=== PATIENT | male | born 1975 | race Caucasian/White ===

== ENCOUNTER 2021-12-18 18:31 | Inpatient (IN) | payer BC, SELFPAY ==
--- NOTE | 2021-12-18 18:32 | XRR_ITS ---
PROCEDURE INFORMATION: Exam: XR Right Foot Exam date and time: 12/18/2021 7:40 PM Age: 46 years old Clinical indication: Pain; Foot; Right; Additional info: Ulcer TECHNIQUE: Imaging protocol: Radiologic exam of the Right foot. Views: 3 or more views. COMPARISON: No relevant prior studies available. FINDINGS: Bones/joints: Hallux valgus on this nonweightbearing exam. Tiny plantar calcaneal spur. Mild dorsal midfoot spurring is present. No acute fracture dislocation. No obvious radiographic evidence of acute osteomyelitis however if there is strong clinical concern, follow-up exam or MRI correlation may be considered. Soft tissues: Irregular foci of air densities throughout the 2nd through 5th toes may be related to soft tissue ulceration or small amount of soft tissue gas. Other findings: Three nonweightbearing views submitted. XR/XR foot RT min 3V* [id number] IMPRESSION: No acute osseous findings. Soft tissue findings as above.
[2021-12-18 19:03] VITALS: BP 161/77; PULSE 109; RESP 18; TEMP 37.3; O2SAT 96; BMI 38.6
[2021-12-18 19:22] LABS: Basophils # 0.1 10^3/uL (0.0-0.1); Basophils % 0.7 %; Eosinophils # 0.1 10^3/uL (0.0-0.8); Eosinophils % 0.7 %; Hematocrit 44.1 % (42.0-52.0); Hemoglobin 15.4 g/dL (11.7-16.6); Lymphocytes # 1.7 10^3/uL (0.8-4.8); Lymphocytes % 8.9 %; Mean Corpuscular HGB Conc 34.9 g/dL (30.0-36.0); Mean Corpuscular Hemoglobin 29.4 pg (28.0-34.0); Mean Corpuscular Volume 84.3 fl (80-94); Monocytes # 1.8 10^3/uL (0.2-0.9); Monocytes % 9.1 %; Neutrophils # 15.47 10^3/uL (1.8-7.7); Neutrophils % 79.9 %; Nucleated Red Blood Cells % 0 %; Platelet Count 218 10^3/cmm (130-400); Red Blood Count 5.23 10^6/uL (4.1-5.3); White Blood Count 19.4 10^3/uL (4.0-10.0)
[2021-12-18 19:37] LABS: Alanine Aminotransferase 23 U/L (0-41); Albumin Level 3.1 g/dL (3.5-5.2); Alkaline Phosphatase 94 U/L (40-130); Anion Gap 15.1 (5-19); Aspartate Amino Transferase 12 U/L (0-40); Blood Urea Nitrogen 16 mg/dL (6-20); Calcium 9.3 mg/dL (8.5-10.5); Carbon Dioxide 21 mmol/L (22-29); Chloride 97 mmol/L (98-107); Globulin 4.2 g/dL (1.3-4.6); Glomerular Filtration Rate 90.4 mL/min (90-130); Glucose 206 mg/dL (65-115); Osmolality Calculated 275 mOsm/kg (285-295); Potassium 4.1 mmol/L (3.5-5.1); Sodium 129 mmol/L (136-145); Total Bilirubin 0.8 mg/dL (0.15-1.2); Total Protein 7.3 g/dL (6.6-8.7)
[2021-12-18] MEDS: piperacillin-tazobactam 3.375 GM in sodium chloride 0.9% (plus) 50 ML IV (20:19)
[2021-12-18] MEDS: vancomycin 1,000 MG in sodium chloride 0.9% 250 ML 250 MG IV (21:00)
[2021-12-18 21:19] VITALS: BMI 39.7
--- NOTE | 2021-12-18 22:30 | W.ED.WOUNDLC ---
HPI - Wound/Laceration General: Chief Complaint: Wound/Laceration Stated Complaint: right foot ulcer and fever Time Seen by Provider: 12/18/21 19:41 History of Present Illness: 46 yo male patient presents to ER with diabetic foot ulcer to left foot. Pt states this has been there for months and has progressively worsened over last month. Pt presents with swollen erythemic 2nd digit to left foot. Pt states he has been running a fever and not feeling well last 2 days. Associated symptoms: Denies chills, fever(s), nausea, syncope or vomiting Review of Systems Const: Denies: fever(s), chills, body aches, change in appetite, change in weight, fatigue, malaise or diaphoresis Eyes: Denies: change in vision, blurry vision, blind spots, photophobia, eye discomfort, eye discharge, eye redness, floaters or seeing flashes ENMT: Denies: throat pain, uvular edema, enlarged tonsils, odynophagia, hoarseness, mouth pain, swelling of lips/tongue, oral sores, bleeding gums, dental pain, dry mouth, ear or mastoid pain, ear discharge, change in hearing, tinnitus, disequilibrium, nasal discharge, nasal congestion, post nasal drip or sinus pain Card: Denies: chest pain, palpitations, irregular heart rhythm, edema, swelling of feet/ankles, lightheadedness, syncope, pre-syncope, dyspnea on exertion, orthopnea, leg pain with exertion or acrocyanosis Resp: Denies: dyspnea, productive cough, non-productive cough, wheezing, stridor, pain on inspiration, change in phlegm color, hemoptysis or chest congestion GI: Denies: abdominal pain, nausea, vomiting, hematemesis, dysphagia, diarrhea, constipation, GI cramping, change in bowel habits or rectal pain : Denies: flank pain, dysuria, urinary frequency, urinary urgency, urinary hesitancy or hematuria Musc: Denies: neck pain, back pain, joint pain, joint swelling or deformity Skin/Breast: Denies: rash, pruritus, erythema, sores, new lesions, changes in skin color or dry skin Neuro: Denies: headache(s), numbness in extremities, weakness in extremities, sensory changes, lack of coordination, difficulty walking, frequent falls, dizziness, vertigo, confusion, behavioral changes, Slurred speech present, difficulty communicating thoughts or seizure-like activity Psych: Denies: anxiety, depression, suicidal ideation or homicidal ideation Endo: Denies: polyuria, polydipsia, tired all the time, cold intolerance, excessive sweating, flushing, hot flashes or heat intolerance Lee/Lymph: Denies: easy bruising, easy bleeding, petechiae, purpura, enlarged lymph nodes or tender lymph nodes All/Imm: Denies: urticaria, throat swelling, tongue swelling, facial swelling, acute wheezing or itchy eyes PFSH ED PFSH: Social History Smoking and tobacco status: former smoker Physical Exam Const: COMMON NORMALS: no acute distress, patient oriented x3, healthy appearing, alert and well nourished GENERAL APPEARANCE: cooperative, comfortable, well kempt and well developed; not ill appearing ORIENTATION/CONSCIOUSNESS: Yes awake, Yes oriented to person, Yes oriented to place and Yes oriented to time HENMT: THROAT: no uvular edema Neck/C-Spine: COMMON NORMALS: full ROM, no lymphadenopathy, supple, no meningeal signs, no JVD and Thyroid normal GENERAL: Yes normal visual inspection and Yes trachea midline THYROID: Thyroid normal CERVICAL SPINE: Yes cervical ROM normal Lymph: LYMPHATIC: no lymphadenopathy noted and no lymphedema noted Chest: COMMONS NORMALS: normal inspection of the chest and normal palpation of entire chest wall Resp: COMMON NORMALS: normal respiratory effort, No retractions, No use of accessory muscles and clear to auscultation bilaterally EFFORT & INSPECTION: Yes able to speak in complete sentences and Yes symmetric chest movement AUSCULTATION: clear to auscultation bilaterally Cardio: COMMON NORMALS: no JVD, regular rate and regular rhythm RATE: regular rate RHYTHM: regular rhythm GI: COMMON NORMALS: Normal to inspection, nondistended, normoactive bowel sounds present, Soft to palpation, non-tender, No hepatosplenomegaly present, no masses and no bruits INSPECTION: Yes normal to inspection AUSCULTATION: Yes normoactive bowel sounds PALPATION: Yes Soft to palpation and Yes No hepatosplenomegaly present PERCUSSION: normal to percussion RECTAL EXAM: Yes deferred : COMMON NORMALS: Yes no CVA tenderness BLADDER/KIDNEY EXAM: Yes no CVA tenderness Back/Pelvis: COMMON NORMALS: no CVA tenderness, thoracic and lumbar spine normal to inspection, no thoracic nor lumbar tenderness, thoraco-lumbar ROM normal and straight leg raise negative bilaterally THORACIC SPINE/UPPER BACK: Yes normal to inspection LUMBAR SPINE/LOWER BACK: Yes normal to inspection Extremity: COMMON NORMALS: full ROM and capillary refill normal (Patient has 1.5 cm tunneling ulcer to left foot) Neuro: COMMON NORMALS: patient oriented x3, CN's II-XII intact bilaterally, moves all extremities, no focal motor deficits, no sensory deficits noted and gait normal SENSORIUM/ORIENTATION: Yes alert, Yes oriented to person, Yes oriented to place and Yes oriented to time MENINGEAL SIGNS: Yes no meningeal signs CRANIAL NERVES: Yes CN normal except as noted SPEECH: speech normal GAIT: Yes Normal gait present SENSORY EXAM: Yes extremities MOTOR EXAM: 5/5 motor strength present throughout Psych: COMMON NORMALS: mental status grossly normal, Normal thought process present, cooperative, normal affect, speech normal, activity/motor behavior normal, denies hallucinations, denies homicidal ideation and denies suicidal ideation APPEARANCE: Yes grossly normal and Yes well kempt ATTITUDE: Yes calm ACTIVITY/MOTOR BEHAVIOR: Yes appropriate eye contact SPEECH: Yes normal speech THOUGHT PROCESS: Normal thought process present THOUGHT CONTENT: Yes Normal thought content present ATTENTION/CONCENTRATION: Yes attention grossly intact MEMORY/COGNITION: Yes memory grossly intact INSIGHT: Good insight present (Psych) JUDGEMENT: Good judgement present (Psych) Skin: COMMON NORMALS: turgor normal, no jaundice, no petechiae and no mottling GENERAL SKIN EXAM: turgor normal Course Vital Signs: Vital signs: Vital Signs Temperature 99.1 F 12/18/21 19:03 Pulse Rate 109 H 12/18/21 19:03 Respiratory Rate 18 12/18/21 19:03 Blood Pressure 161/77 12/18/21 19:03 Pulse Oximetry 96 12/18/21 19:03 Oxygen Delivery Me thod 12/18/21 19:03 MDM - Wound/Laceration Medical Decision Making Patient is well appearing on toxic and in no acute distress. 46 yo male patient presents to ER with diabetic foot ulcer to left foot. Pt states this has been there for months and has progressively worsened over last month. Pt presents with swollen erythemic 2nd digit to left foot. Pt states he has been running a fever and not feeling well last 2 days. Based on patients worsening diabetic foot ulcer and systemic symptoms, wlevated WBC, I will plan on admitting arjun for IV antibiotics at this time.. Van and Zosyn infusing. Pt is NVI distally Lab Data : 12/18/21 19:00 12/18/21 19:00 Radiology Impressions Foot X-Ray 12/18/21 18:32 IMPRESSION: No acute osseous findings. Soft tissue findings as above. Laboratory Results WBC 19.4 10^3/uL (4.0-10.0) H 12/18/21 19:00 RBC 5.23 10^6/uL (4.1-5.3) 12/18/21 19:00 Hgb 15.4 g/dL (11.7-16.6) 12/18/21 19:00 Hct 44.1 % (42.0-52.0) 12/18/21 19:00 MCV 84.3 fl (80-94) 12/18/21 19:00 MCH 29.4 pg (28.0-34.0) 12/18/21 19:00 MCHC 34.9 g/dL (30.0-36.0) 12/18/21 19:00 RDW 12.0 % (12.1-15.1) L 12/18/21 19:00 Plt Count 218 10^3/cmm (130-400) 12/18/21 19:00 MPV 10.0 fL (7.4-10.4) 12/18/21 19:00 Neut % (Auto) 79.9 % 12/18/21 19:00 Lymph % (Auto) 8.9 % 12/18/21 19:00 [place] % (Auto) 9.1 % 12/18/21 19:00 Eos % (Auto) 0.7 % 12/18/21 19:00 Baso % (Auto) 0.7 % 12/18/21 19:00 Neut # (Auto) 15.47 10^3/uL (1.8-7.7) H 12/18/21 19:00 Lymph # (Auto) 1.7 10^3/uL (0.8-4.8) 12/18/21 19:00 [place] # (Auto) 1.8 10^3/uL (0.2-0.9) H 12/18/21 19:00 Eos # (Auto) 0.1 10^3/uL (0.0-0.8) 12/18/21 19:00 Baso # (Auto) 0.1 10^3/uL (0.0-0.1) 12/18/21 19:00 Nucleated RBC % (auto) 0 % 12/18/21 19:00 Nucleated RBCs # 0.0 /100WBC 12/18/21 19:00 Sodium 129 mmol/L (136-145) L 12/18/21 19:00 Potassium 4.1 mmol/L (3.5-5.1) 12/18/21 19:00 Chloride 97 mmol/L (98-107) L 12/18/21 19:00 Carbon Dioxide 21 mmol/L (22-29) L 12/18/21 19:00 Anion Gap 15.1 (5-19) 12/18/21 19:00 BUN 16 mg/dL (6-20) 12/18/21 19:00 Creatinine 0.9 mg/dL (0.7-1.2) 12/18/21 19:00 GFR Calculation 90.4 mL/min (90-130) 12/18/21 19:00 Glucose 206 mg/dL (65-115) H 12/18/21 19:00 Calculated Osmolality 275 mOsm/kg (285-295) L 12/18/21 19:00 Calcium 9.3 mg/dL (8.5-10.5) 12/18/21 19:00 Total Bilirubin 0.8 mg/dL (0.15-1.2) 12/18/21 19:00 AST 12 U/L (0-40) 12/18/21 19:00 ALT 23 U/L (0-41) 12/18/21 19:00 Alkaline Phosphatase 94 U/L (40-130) 12/18/21 19:00 Total Protein 7.3 g/dL (6.6-8.7) 12/18/21 19:00 Albumin 3.1 g/dL (3.5-5.2) L 12/18/21 19:00 Globulin 4.2 g/dL (1.3-4.6) 12/18/21 19:00 Discharge Plan Discharge Patient Disposition: Admitted As Inpatient Admit Provider: Paige Hannah Clinical Impression: Diabetic foot ulcer Condition: Stable Coding Level of Care Code ED [employer] for Guille Engel
--- NOTE | 2021-12-18 22:33 | CTR_ITS ---
PROCEDURE INFORMATION: Exam: CT Right Lower Extremity With Contrast, Foot Exam date and time: 12/18/2021 11:11 PM Age: 46 years old Clinical indication: Other: Gas seen on x-ray; Additional info: Right foot diabetic foot, x ray with gas bubbles, concern for gas gangrene, evaluate TECHNIQUE: Imaging protocol: CT of the Right lower extremity with intravenous contrast was performed. Exam focused on the foot. Radiation optimization: All CT scans at this facility use at least one of these dose optimization techniques: automated exposure control; mA and/or kV adjustment per patient size (includes targeted exams where dose is matched to clinical indication); or iterative reconstruction. Contrast material: OMNI 350; Contrast volume: 100 ml; Contrast route: INTRAVENOUS (IV); COMPARISON: CR (LOW EXM, ) 12/18/2021 7:40 PM RADIATION DOSE METRICS: Total DLP (mGy-cm): 196.73 FINDINGS: Bones/joints: Soft tissue ulceration over the plantar aspect of the 2nd metacarpophalangeal joint with subcutaneous emphysema seen extending about the 2nd, 3rd and 4th phalanges with nonlocalized fluid consistent with a soft tissue infection, negative for focal fluid collection to indicate an abscess or acute appearing bony abnormality. Soft tissues: See Bones/joints finding. CT/CT foot RT w con [id number] IMPRESSION: Soft tissue ulceration over the plantar aspect of the 2nd metacarpophalangeal joint with subcutaneous emphysema seen extending about the 2nd, 3rd and 4th phalanges with nonlocalized fluid consistent with a soft tissue infection, negative for focal fluid collection to indicate an abscess or acute appearing bony abnormality.
[2021-12-18] MEDS: sodium chloride 0.9% 1,000 ML 75 ML IV (22:56)
[2021-12-18] MEDS: enoxaparin 40 mg/0.4 mL Syringe SUBCUT (22:57)
--- NOTE | 2021-12-18 23:03 | PC.PHAR ---
Pharmacokinetic dosing service Date: 12/18/21 Time: 2299 Objective: Patient: Dru Hazel Floor: 256-2 Age: 46 yo Serum creatinine: 0.9 mg/dL Height: 71.0 Inches Weight (kg): 129.274 Diagnosis: Relevant medical/social history: Cultures and sensitivities: Other labs: Assessment: IBW (kg): 75.30 Dosing wt(kg): 129.274 Estimated Creatinine clearance (ml/min): 108.1 CRCL method: Cockcroft and Gault using ibw(default). Drug selected: Vancomycin Loading dose (mg): 0 Vd (liters): 116.3 (factor used: 0.9 L/kg) Cristobal (hr-1): 0.094 Half life (hrs): 7.37 Recommended dose: 2000 mg Interval: 8 hrs Infusion time (hrs): 1.5 Predicted peak (mcg/mL): 30.3 Predicted trough (mcg/mL): 16.45 Total body weight is being used for vancomycin dosing. Renal function is stable [ ] /unstable [ ] Recommendations: Give Vancomycin 2000 mg q 8 hrs with an expected Cpeak of 30.3 mcg/ml and an expected Ctrough of 16.45 mcg/ml Renal dosing of other antibiotics (review renal dosing of other medications and list guidelines here): Thank you for the consult, will continue to follow. Signature: Katina Caldwell [facility]
[2021-12-18] MEDS: iohexol 350 mg/mL 100 mL Btl IV (23:08)
[2021-12-18 23:16] LABS: Lactic Sepsis W/Reflex 1.7 mmol/L (0.5-2.2)
--- NOTE | 2021-12-18 23:27 | P.HP_ITS ---
Providers/Chief Complaint Admitting Physician: Paige Hannah MD Primary Care Provider: Farzaneh Hernandez MD Chief Complaint: right foot ulcer and fever History of Present Illness Dru Hazel is a 46 year old male with a past medical history of diabetes mellitus, neuropathy, presenting with ulcer over his right foot which is currently draining for the past 2 to 3 months. He has had fever, increased swelling, feeling acutely unwell which brought him into the emergency room. Diagnostics ER showed leukocytosis, tachycardia and fever. Review of Systems General: Reports: 10 or more systems reviewed and unremarkable except in HPI and below Const: Denies: fever(s), chills or body aches Eyes: Denies: change in vision, blurry vision or photophobia ENMT: Reports: hoarseness; Denies: throat pain, enlarged tonsils, odynophagia or nasal congestion Card: Denies: chest pain, palpitations, irregular heart rhythm, edema, swelling of feet/ankles, lightheadedness, pre-syncope, dyspnea on exertion or orthopnea Resp: Denies: dyspnea, productive cough, non-productive cough, wheezing, stridor, pain on inspiration, change in phlegm color, hemoptysis or chest congestion GI: Denies: abdominal pain, nausea, vomiting, hematemesis, coffee ground emesis, dysphagia, heartburn, diarrhea, constipation, GI cramping, change in sto ol character, hematochezia or melena : Denies: flank pain, dysuria, urinary frequency, urinary urgency, urinary hesitancy or hematuria Musc: Denies: neck pain, back pain, extremity pain, joint swelling, joint warmth or deformity Neuro: Denies: headache(s), numbness in extremities, weakness in extremities, sensory changes, difficulty walking, frequent falls, dizziness, vertigo, behavioral changes, Slurred speech present or seizure-like activity Psych: Denies: anxiety, depression, suicidal ideation or homicidal ideation Endo: Denies: polyuria, polydipsia, tired all the time, cold intolerance or hot flashes Lee/Lymph: Denies: easy bruising or easy bleeding Medications/Allergies Home Medications Medication Instructions Recorded Confirmed Last Taken Type amlodipine 10 mg tablet 10 mg PO DAILY 01/02/20 12/19/21 12/18/21 08:00 History glimepiride 2 mg tablet 4 mg PO DAILY 01/02/20 12/19/21 12/18/21 08:00 History lisinopril 20 mg tablet 20 mg PO DAILY 01/02/20 12/19/21 12/18/21 08:00 History metformin 500 mg tablet,extended 2,000 mg PO ONCE 01/02/20 12/19/21 12/18/21 08:00 History release 24 hr sitagliptin 100 mg tablet (Januvia) 100 mg PO DAILY 01/02/20 12/19/21 12/18/21 08:00 History semaglutide 0.25 mg or 0.5 mg (2 0.25 mg SUBCUT 12/19/21 12/12/21 08:00 History mg/1.5 mL) subcutaneous pen injector ([employer]) Allergies Allergy/AdvReac Type Severity Reaction Status Date / Time No Known Allergies Allergy Verified 01/02/20 08:42 PFSH Acute PFSH: Medical History (Updated 12/19/21 @ 02:59 by Paige Hannah MD) Diabetes Social History Smoking and tobacco status: former smoker Vitals/I&O/Wt Last Vital Signs Temp 99.1 F 12/18/21 19:03 Pulse 109 H 12/18/21 19:03 Resp 18 12/18/21 19:03 BP 161/77 12/18/21 19:03 Pulse Ox 96 12/18/21 19:03 O2 Del Method 12/18/21 19:03 12/18/21 12/18/21 12/19/21 14:59 22:59 06:59 Intake Total 300 / 300 Balance 300 / 300 Weight last 48 hrs Weight 129.274 kg Weight 129.274 kg Physical Exam Narrative: General: No acute distress, AO x3 HEENT: PERRLA, pupils bilaterally equal and reactive, pallors not present Chest: Normal vesicular breath sounds, no added sounds, equal good air entry bilaterally CVS: S1-S2 regular, no murmurs, no tachycardia, no gallops, no rubs Abdomen: Soft, nontender, no organomegaly, bowel sounds present Neuro: No focal deficits, no facial deformity, AO x3, power 5/5 in all limbs Data : 12/19/21 04:57 12/19/21 04:57 Other Labs: Radiology Impressions Foot X-Ray 12/18/21 18:32 IMPRESSION: No acute osseous findings. Soft tissue findings as above. Foot CT 12/18/21 22:33 IMPRESSION: Soft tissue ulceration over the plantar aspect of the 2nd metacarpophalangeal joint with subcutaneous emphysema seen extending about the 2nd, 3rd and 4th phalanges with nonlocalized fluid consistent with a soft tissue infection, negative for focal fluid collection to indicate an abscess or acute appearing bony abnormality. Laboratory Results WBC 19.4 10^3/uL (4.0-10.0) H 12/18/21 19:00 RBC 5.23 10^6/uL (4.1-5.3) 12/18/21 19:00 Hgb 15.4 g/dL (11.7-16.6) 12/18/21 19:00 Hct 44.1 % (42.0-52.0) 12/18/21 19:00 MCV 84.3 fl (80-94) 12/18/21 19:00 MCH 29.4 pg (28.0-34.0) 12/18/21 19:00 MCHC 34.9 g/dL (30.0-36.0) 12/18/21 19:00 RDW 12.0 % (12.1-15.1) L 12/18/21 19:00 Plt Count 218 10^3/cmm (130-400) 12/18/21 19:00 MPV 10.0 fL (7.4-10.4) 12/18/21 19:00 Neut % (Auto) 79.9 % 12/18/21 19:00 Lymph % (Auto) 8.9 % 12/18/21 19:00 Bryan % (Auto) 9.1 % 12/18/21 19:00 Eos % (Auto) 0.7 % 12/18/21 19:00 Baso % (Auto) 0.7 % 12/18/21 19:00 Neut # (Auto) 15.47 10^3/uL (1.8-7.7) H 12/18/21 19:00 Lymph # (Auto) 1.7 10^3/uL (0.8-4.8) 12/18/21 19:00 Bryan # (Auto) 1.8 10^3/uL (0.2-0.9) H 12/18/21 19:00 Eos # (Auto) 0.1 10^3/uL (0.0-0.8) 12/18/21 19:00 Baso # (Auto) 0.1 10^3/uL (0.0-0.1) 12/18/21 19:00 Nucleated RBC % (auto) 0 % 12/18/21 19: Nucleated RBCs # 0.0 /100WBC 12/18/21 19:00 Sodium 129 mmol/L (136-145) L 12/18/21 19:00 Potassium 4.1 mmol/L (3.5-5.1) 12/18/21 19:00 Chloride 97 mmol/L (98-107) L 12/18/21:00 Carbon Dioxide 21 mmol/L (22-29) L 12/18/21:00 Anion Gap 15.1 (5-19) 12/18/21 19:00 BUN 16 mg/dL (6-20) 12/18/21 19:00 Creatinine 0.9 mg/dL (0.7-1.2) 12/18/21 19:00 GFR Calculation 90.4 mL/min (90-130) 12/18/21 19:00 Glucose 206 mg/dL (65-115) H 12/18/21 19:00 Estimat Average Glucose 192 12/18/21:59 Hemoglobin A1c 8.3 % (4.0-6.0) H 12/18/21 19:59 Calculated Osmolality 275 mOsm/kg (285-295) L 12/18/21 19:00 Lactic Acid 1.7 mmol/L (0.5-2.2) 12/18/21:59 Calcium 9.3 mg/dL (8.5-10.5) 12/18/21 19:00 Total Bilirubin 0.8 mg/dL (0.15-1.2) 12/18/21 19:00 AST 12 U/L (0-40) 12/18/21 19:00 ALT 23 U/L (0-41) 12/18/21 19:00 Alkaline Phosphatase 94 U/L (40-130) 12/18/21 19: Total Protein 7.3 g/dL (6.6-8.7) 12/18/21 19:00 Albumin 3.1 g/dL (3.5-5.2) L 12/18/21 19:00 Globulin 4.2 g/dL (1.3-4.6) 12/18/21 19:00 Micro: Microbiology 12/18/21 20:02 Blood Culture - Preliminary Blood SPECIMEN COLLECTED 12/18/21 19:59 Blood Culture - Preliminary Blood SPECIMEN COLLECTED A&P Assessment and plan (1) Sepsis: As evidenced by fever, tachycardia,leukocytosis source of infection by way of diabetic foot. check lactate, blood culture He has received vancomycin thus far start Zosyn in addition to vancomycin HAs received sepsis bolus in the ER, continue IVF 75 cc/hr CT foot to assess for underlying abscesses and /or osteomyelitis Continue home doses of amlodipine, lisinopril Insulin sliding scale for DM (2) Diabetic foot ulcer: Attestations Medical Necessity Statement*: Anticipate >2midnight admission for management of sepsis from diabetic foot infection Coding Level of Care Code Acute [employer] for [facility] Diagnoses Sepsis A41.9 Diabetic foot ulcer E11.621; L97.509
[2021-12-18 23:52] LABS: Estmated Average Glucose 192; Hemoglobin A1C 8.3 % (4.0-6.0)
[2021-12-19] VITALS (12 sets, daily range): BP systolic 123–169; BP diastolic 65–92; PULSE 91–107; RESP 15–75; TEMP 36.4–38.1; O2SAT 92–96
[2021-12-19 05:10] LABS: Basophils # 0.1 10^3/uL (0.0-0.1); Basophils % 0.4 %; Eosinophils # 0.1 10^3/uL (0.0-0.8); Eosinophils % 0.8 %; Hematocrit 40.2 % (42.0-52.0); Hemoglobin 14.2 g/dL (11.7-16.6); Lymphocytes # 1.3 10^3/uL (0.8-4.8); Lymphocytes % 7.8 %; Mean Corpuscular HGB Conc 35.3 g/dL (30.0-36.0); Mean Corpuscular Hemoglobin 29.8 pg (28.0-34.0); Mean Corpuscular Volume 84.3 fl (80-94); Mean Platelet Volume 9.5 fL (7.4-10.4); Monocytes # 1.6 10^3/uL (0.2-0.9); Monocytes % 9.8 %; Neutrophils # 13.48 10^3/uL (1.8-7.7); Neutrophils % 80.6 %; Nucleated Red Blood Cells % 0 %; Platelet Count 179 10^3/cmm (130-400); Red Blood Count 4.77 10^6/uL (4.1-5.3); Red Cell Distribution Width 12.2 % (12.1-15.1); White Blood Count 16.7 10^3/uL (4.0-10.0)
[2021-12-19 05:34] LABS: Alanine Aminotransferase 20 U/L (0-41); Albumin Level 2.7 g/dL (3.5-5.2); Alkaline Phosphatase 83 U/L (40-130); Anion Gap 15.2 (5-19); Aspartate Amino Transferase 11 U/L (0-40); Blood Urea Nitrogen 14 mg/dL (6-20); Calcium 9.2 mg/dL (8.5-10.5); Carbon Dioxide 22 mmol/L (22-29); Chloride 98 mmol/L (98-107); Glomerular Filtration Rate 90.4 mL/min (90-130); Glucose 202 mg/dL (65-115); Osmolality Calculated 278 mOsm/kg (285-295); Potassium 4.2 mmol/L (3.5-5.1); Sodium 131 mmol/L (136-145); Total Bilirubin 0.9 mg/dL (0.15-1.2); Total Protein 6.7 g/dL (6.6-8.7)
[2021-12-19 06:29] LABS: Glucose Point of Care 219 mg/dL (70-110)
--- NOTE | 2021-12-19 07:04 | PM.CONSULT ---
Providers/Reason For Consult Consulting Physician/Specialty*: Beto Jamil D.P.M. Reason for Consult*: Right diabetic foot infection Attending Physician: Paige Hannah MD Primary Care Provider: Farzaneh Hernandez MD History of Present Illness History of Present Illness Dru Hazel is a 46 year old diabetic male presents with worsening of wound to the right foot, began experiencing fevers and chills yesterday and his demanded that he go to the emergency department. Reports a long history of a wound to the ball of his right foot that began as a callus and progressed into blood blister, initial sore started back in November 2020. 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 No other complaints. Primary care physician Dr. Hernandez. Review of Systems General: Reports: 10 or more systems reviewed and unremarkable except in HPI and below Const: Denies: fever(s) or chills Eyes: Denies: change in vision Card: Denies: chest pain or palpitations Resp: Denies: dyspnea or productive cough GI: Denies: abdominal pain, nausea or vomiting : Denies: flank pain Musc: Reports: extremity swelling, joint stiffness and deformity Skin/Breast: Reports: erythema, sores, changes in skin color, dry skin, nail changes and change in hair Neuro: Reports: numbness in extremities, sensory changes and difficulty walking Psych: Denies: suicidal ideation Endo: Denies: change in body appearance Lee/Lymph: Denies: tender lymph nodes Medications/Allergies Home Medications Medication Instructions Recorded Confirmed Last Taken Type amlodipine 10 mg tablet 10 mg PO DAILY 01/02/20 12/19/21 12/18/21 08:00 History glimepiride 2 mg tablet 4 mg PO DAILY 01/02/20 12/19/21 12/18/21 08:00 History lisinopril 20 mg tablet 20 mg PO DAILY 01/02/20 12/19/21 12/18/21 08:00 History metformin 500 mg tablet,extended 2,000 mg PO ONCE 01/02/20 12/19/21 12/18/21 08:00 History release 24 hr sitagliptin 100 mg tablet (Januvia) 100 mg PO DAILY 1112/19/21 12/18/21 08:00 History semaglutide 0.25 mg or 0.5 mg (2 0.25 mg SUBCUT 12/19/21 12/12/21 08:00 History mg/1.5 mL) subcutaneous pen injector (Ozempic) Allergies Allergy/AdvReac Type Severity Reaction Status Date / Time No Known Allergies Allergy Verified 01/02/20 08:42 Current Medications Generic Name Dose Route Start Last Admin Trade Name Karina PRN Reason Stop Dose Admin Enoxaparin Sodium 40 mg 12/18/21 23:00 12/18/21 22:57 Enoxaparin 40 Mg/0.4 Ml Syringe SUBCUT 40 mg Q24H SRINIVAS Administration Sodium Chloride 1,000 mls @ 75 mls/hr 12/18/21 22:45 12/18/21 22:56 Sodium Chloride 0.9% IV 75 mls/hr .[id number] SRINIVAS Administration Vancomycin HCl 2,000 mg/ 500 mls @ 250 mls/hr 12/19/21 04:00 12/19/21 04:49 Sodium Chloride IV 250 mls/hr Q8H SRINIVAS Administration PFSH Acute PFSH: Medical History (Updated 12/19/21 @ 07:34 by Beto Jamil DPM) Diabetes Social History Smoking and tobacco status: former smoker Vitals/I&O/Wt Last Vital Signs Temp 98.1 F 12/19/21 04:00 Pulse 106 H 12/19/21 04:00 Resp 16 12/19/21 04:00 BP 169/79 12/19/21 04:00 Pulse Ox 94 12/19/21 04:00 O2 Del Method 12/19/21 04:00 12/18/21 12/19/21 12/19/21 22:59 06:59 14:59 Intake Total 300 / 300 Balance 300 / 300 Weight last 48 hrs Weight 285 lb Weight 285 lb Physical Exam Narrative: GENERAL: Patient is alert and oriented ?3 and in no acute distress. The following is a focused bilateral lower extremity exam. VASCULAR: Dorsalis pedis palpable +2 left and right. Posterior tibial arteries +2. Capillary refill time less than 3 seconds to the distal hallux bilaterally. Calf is supple and nontender proximally and distally. Edema to the right forefoot. NEUROLOGICAL: Protective sensation intact 0/10 sites, tested with [place] Eben monofilament to bilateral feet. DERMATOLOGICAL: Full thickness wound subsecond metatarsal head right forefoot with adjacent purulent filled bullae within the sulcus of the second third and fourth toes. Erythema at the plantar forefoot extending proximally to the dorsal midfoot, more intense erythema to the right second toe. Soft tissue crepitus at the right second toe. MUSCULOSKELETAL: Soft tissue crepitus right second toe. Hammertoe contractures of toes 2, 3, 4 and 5 of the right foot. Anterior shift of fat pad to the right foot. No pain with posterior calf squeeze. Data : 12/19/21 04:57 12/19/21 04:57 Micro: Microbiology 12/18/21 20:02 Blood Culture - Preliminary Blood SPECIMEN COLLECTED 12/18/21 19:59 Blood Culture - Preliminary Blood SPECIMEN COLLECTED A&P Assessment and plan (1) Cellulitis: Qualifiers: Site of cellulitis: extremity Site of cellulitis of extremity: lower extremity Laterality: right Qualified Code(s): L03.115 - Cellulitis of right lower limb (2) Sepsis: Qualifiers: Sepsis type: sepsis due to unspecified organism Sepsis acute organ dysfunction status: unspecified Qualified Code(s): A41.9 - Sepsis, unspecified organism (3) Gangrene of right foot: Plan 46-year-old diabetic male, sepsis secondary to diabetic foot infection with soft tissue of emphysema extending to the second, third and fourth toes right foot. N.p.o. 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
[2021-12-19] MEDS: piperacillin-tazobactam 3.375 GM in sodium chloride 0.9% (plus) 50 ML IV ×3 (07:05→22:20)
--- NOTE | 2021-12-19 08:47 | PC.NURSE ---
Elisa from surgery came and picked up the patient for surgery. He is off the med/surg unit at this time.
[2021-12-19] MEDS: sodium chloride 0.9% 1,000 ML 30 ML IV (09:01)
--- NOTE | 2021-12-19 09:24 | W.PM.OPSUD ---
Surgery/Procedure H&P Update DATE OF PROCEDURE: December 19, 2021 DATE H&P PERFORMED: 12/19/21 CHANGES TO PREVIOUS DOCUMENTATION: none PLANNED PROCEDURE: Operation Date: 12/19/21 09:10 Proposed Procedures p Incision And Drainage right foot ulcer(Right) - Beto Jamil DPM
--- NOTE | 2021-12-19 09:39 | P.PN_ITS ---
Subjective Subjective: Patient is going for surgery Septic Will need PICC line placement 6 weeks antibiotics once sepsis clears Vitals/I&O/Wt Last Vital Signs Temp 100.3 F H 12/19/21 08:48 Pulse 104 H 12/19/21 08:48 Resp 18 12/19/21 08:48 BP 162/81 12/19/21 08:48 Pulse Ox 94 12/19/21 08:48 O2 Del Method 12/19/21 08:48 12/18/21 12/19/21 12/19/21 22:59 06:59 14:59 Intake Total 300 / 300 500 / 500 Balance 300 / 300 500 / 500 Weight last 48 hrs Weight 129.274 kg Weight 129.274 kg Physical Exam Narrative: Awake and alert Record covered in dressing Awake and alert Nonfocal neuro exam Septic Tachycardic Hypertensive Abdomen soft Pleasant during my evaluation Awake and alert Data : 12/19/21 04:57 12/19/21 04:57 Micro: Microbiology 12/18/21 20:02 Blood Culture - Preliminary Blood SPECIMEN COLLECTED 12/18/21 19:59 Blood Culture - Preliminary Blood SPECIMEN COLLECTED A&P Assessment and plan (1) Gangrene of right foot: (2) Cellulitis: Qualifiers: Site of cellulitis: extremity Site of cellulitis of extremity: lower extremity Laterality: right Qualified Code(s): L03.115 - Cellulitis of right lower limb (3) Sepsis: Qualifiers: Sepsis type: sepsis due to unspecified organism Sepsis acute organ dysfunction status: unspecified Qualified Code(s): A41.9 - Sepsis, unspecified organism (4) Diabetic foot ulcer: Plan Osteomyelitis of right foot Diabetic foot ulcer Will need PICC line once sepsis has resolved Will wait for cultures from the OR He will need 6 weeks of IV antibiotics Does not meet criteria to be on insulin for now After surgery he will get DVT prophylaxis we will continue sliding scale and probably put him on Lantus for hospitalization He can have consistent carb diet after surgery He is full code He will wait until the cultures are back which will take about 2 more days Attestations Medical Necessity Statement*: Continue medical management Time Spent in Patient Care: 30 Coding Level of Care Code 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
[2021-12-19] MEDS: sodium hypochlorite 0.125% Btl 473 mL 1 APPLIC TOPICAL ×2 (10:00→17:29)
--- NOTE | 2021-12-19 10:07 | PM.OP ---
Operative Report Date of procedure: December 19, 2021 Pre-op diagnosis: Diabetic foot infection, right foot with soft tissue emphysema. Post-op diagnosis: Same Post-op findings: Necrotic tissue down to myofascial layer across the ball of the right foot, liquefactive fat necrosis. Strong malodor. Procedure done: Incision and debridement right foot. CPT code 60619 Implants: None Specimens removed/disposition: Deep tissue sent to microbiology both anaerobic and aerobic for gram stain and culture Pathology: None Surgeon: Beto Jamil D.P.M. Golf Club Weighter: Brooke Estimated blood loss: 5 17 IV fluids: None Urine output: None Complications: None Findings: See above Brief History: Dru Hazel is a 46 year old diabetic male presents with worsening of wound to the right foot, began experiencing fevers and chills yesterday and his demanded that he go to the emergency department.? Reports a long history of a wound to the ball of his right foot that began as a callus and progressed into blood blister, initial sore started back in November 2020.? 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 Has foul-smelling odor, increased redness, soft tissue emphysema on CT. Procedure: Under mild sedation the patient was brought to the operating room and remained on the gurney in supine position. A timeout was performed. Anesthesia was administered by the anesthesia service. Local anesthesia injected by myself 30 cc of 0.5% Marcaine plain and a second, third and fourth ray block fashion. Well-padded pneumatic tourniquet applied to the right ankle. Right lower extremity was then scrubbed, prepped and draped utilizing normal aseptic technique. Right leg was elevated and tourniquet inflated to 250 mmHg. Attention was directed to the right plantar forefoot where a wound subsecond metatarsal head was appreciated and distal to this wound there was significant erythema, bullae and soft tissue crepitus within the sulcus of the second, third and fourth toes. The wound subsecond metatarsal was sharply excised full-thickness down to fat layer with 15 blade and pickups and passed from operative field. Deep tissue cultures both aerobic and anaerobic were taken and sent to microbiology for gram stain and sensitivities. Tracking of devitalized tissue was appreciated both at the first interspace and tracking to the second interspace and into the third and fourth toes plantarly. For this reason a curvilinear incision was made within the sulcus transversely from the second ray across the third and fourth plantar aspect of metatarsal phalangeal joint through skin with a #15 blade with dissection carried down bluntly through subcutaneous tissue to the layer of deep fascia and flexor tendons. Heavily purulence was encountered throughout this incision extending to the fourth toe. Significant devitalized tissue with fat necrosis, black tissue and strong malodor across the plantar aspect of the metatarsal parabola within this incision. The incision was irrigated with copious amounts of sterile saline solution followed by sharp debridement with brown pickups and 15 blade. This was debrided of devitalized tissue and exposed all pockets of purulence. Further irrigation was performed followed by Dakin's quarter percent wet-to-dry dressing, Kerlix, ABD pads and Coban. Tourniquet was deflated and a hyperemic response was noted to the distal digits of the right foot, second toe was delayed at 5 seconds remaining toes were 3 seconds. Plans for further debridement and ultimately pending his response to antibiotic therapy may require transmetatarsal amputation. Will perform Dakin's wet-to-dry every 6 while on the floor, continue empiric IV antibiotics and may narrow once cultures yield further information.
[2021-12-19] MEDS: lisinopril 20 mg Tablet PO (12:34)
--- NOTE | 2021-12-19 13:03 | PC.CHAP ---
Pastoral Care Encounter/Spiritual Assessment Type of Contact [] Declined labeling strategist visit [] Patient/Family/Request visit [] Outpatient visit [] Follow-up visit [] Physician referral [] Code/Alert [x] Routine visit [] Staff referral [] Actively dying [] Patient sleeping [] Family support [] [] Out of room [] Palliative care [] [x] Receiving care in room [] Pre-surgical visit [] Trauma [] Long length of stay [] ICU visit [] Other: Relational/Emotional Strength [x] Patient feels connected with others/family/visitors/staff [] Distress [] Loneliness/isolation [] Abandonment Spirituality of Patient [x] Person of Brooke [] Attends Pentecostal of their Brooke [x] Believes in Prayer [] Reads Bible or Episcopalian materials [] There are Spiritual issues to be addressed [employer]el [employer] Interventions [x] Prayer [x] Active listening [x] Non-anxious presence [x] Spiritual/emotional support [] Crisis/trauma care [x] Spiritual counseling [] Bereavement support [] Provided bereavement packet [] Provided Bible/devotional materials [] Provided toy/stuffed animal, coloring book to patient or family member [] Provided Communion [] Anointing/[place] [] Salvation [x] Completed spiritual assessment [] Other: Impact on Illness or Injury [] Angry [] Fearful [] Anxious [] Often cries [] Exhaustion [] Unable to work [] Unable to attend jewish [] Unable to walk/stand [] Unable to read [] Unable to drive [] Unable to eat/drink [] Unable to sleep [] Unable to be with family [] Patient intubated [] Other: Summary had surgery it wnt well will has a good attitude well be going home Time spent with patient 10 mins
--- NOTE | 2021-12-19 13:14 | ANES.PREANE2 ---
Pre-Anesthetic Assessment Height/Weight: Height 1.8 m Weight 129.274 kg Temp Pulse Resp BP Pulse Ox O2 Del Method 98.6 F 92 15 150/82 92 12/19/21 11:30 12/19/21 11:30 12/19/21 11:30 12/19/21 11:30 12/19/21 11:30 12/19/21 11:30 Operation Date: 12/19/21 09:10 Proposed Procedures p Incision And Drainage right foot ulcer(Right) - Beto Jamil DPM Familial anesthetic complications: none Was Beta Dilip taken within 24 hours: N/A Was Clonidine taken within 24 hours: N/A Last intake: Intake Last Liquid Date 12/19/21 Last Liquid Time 04:00 Last Solid Date 12/18/21 Last Solid Time 20:00 Social No alcohol Exam alert, oriented x 3, clear to auscultation bilaterally and regular rate & rhythm Airway Submandibular: within normal limits Cervical ROM: within normal limits Mallampati: Class II CV/HEM Hypertension Metabolic Diabetes Mellitus and Morbid Obesity Anesthetic Plan ASA status: 3 Anesthesia: MAC Medications/Allergies Home Medications Medication Instructions Recorded Confirmed Last Taken Type amlodipine 10 mg tablet 10 mg PO DAILY@01/02/20 12/19/21 Unknown History glimepiride 2 mg tablet 4 mg PO DAILY@01/02/20 12/19/21 Unknown History lisinopril 20 mg tablet 20 mg PO DAILY@01/02/20 12/19/21 Unknown History metformin 500 mg tablet,extended 2,000 mg PO DAILY@01/02/20 12/19/21 Unknown History release 24 hr sitagliptin 100 mg tablet (Januvia) 100 mg PO DAILY@01/02/20 12/19/21 Unknown History acetaminophen 500 mg tablet 1,000 mg PO Q4H PRN Pain 12/19/21 12/19/21 Unknown History doxycycline hyclate 100 mg tablet 100 mg PO BID 12/19/21 12/19/21 Unknown History ibuprofen 200 mg tablet 800 mg PO Q4H PRN Pain 12/19/21 12/19/21 Unknown History semaglutide 1 mg/dose (4 mg/3 mL) 1 mg SUBCUT Q7D 12/19/21 12/19/21 12/12/21 History subcutaneous pen injector (Ozempic) 1 mg Allergies Allergy/AdvReac Type Severity Reaction Status Date / Time No Known Allergies Allergy Verified 12/19/21 07:53 Current Medications Generic Name Dose Route Start Last Admin Trade Name Karina PRN Reason Stop Dose Admin Enoxaparin Sodium 40 mg 12/18/21 23:00 12/18/21 22:57 Enoxaparin 40 Mg/0.4 Ml Syringe SUBCUT 40 mg Q24H SRINIVAS Administration Sodium Chloride 1,000 mls @ 75 mls/hr 12/18/21 22:45 12/18/21 22:56 Sodium Chloride 0.9% IV 75 mls/hr .[id number] SRINIVAS Administration Piperacillin Sod/Tazobactam 50 mls @ 12.5 mls/hr 12/19/21 06:00 12/19/21 12:05 Sod 3.375 gm/ Sodium Chloride IV Infused Q8H SRINIVAS Infusion Protocol Vancomycin HCl 2,000 mg/ 500 mls @ 250 mls/hr 12/19/21 04:00 12/19/21 07:05 Sodium Chloride IV Infused Q8H SRINIVAS Infusion Insulin Human Lispro 0 unit 12/19/21 08:00 12/19/21 11:41 Insulin Lispro 100 Unit/1 Ml SUBCUT Not Given WM&BEDTIME SRINIVAS Protocol Lisinopril 20 mg 12/19/21 09:00 12/19/21 12:34 Lisinopril 20 Mg Tablet PO 20 mg DAILY SRINIVAS Administration Sodium Hypochlorite 1 applic 12/19/21 10:00 12/19/21 10:00 Sodium Hypochlorite 0.125% Btl 473 Ml TOPICAL 1 applic Q24H SRINIVAS Administration [facility] Anesthesia Medical History (Updated 12/19/21 @ 07:34 by Beto Jamil DPM) Diabetes Social History Smoking and tobacco status: former smoker Data Anesthesia : 12/19/21 04:57 12/19/21 04:57 Short CBC 12/18/21 12/19/21 Range/Units 19:00 04:57 WBC 19.4 H 16.7 H (4.0-10.0) 10^3/uL Hgb 15.4 14.2 (11.7-16.6) g/dL Hct 44.1 40.2 L (42.0-52.0) % MCV 84.3 84.3 (80-94) fl Plt Count 218 179 (130-400) 10^3/cmm Neut % (Auto) 79.9 80.6 % Neut # (Auto) 15.47 H 13.48 H (1.8-7.7) 10^3/uL BMP 12/18/21 12/19/21 19:00 04:57 Sodium 129 L 131 L Potassium 4.1 4.2 Chloride 97 L 98 Carbon Dioxide 21 L 22 BUN 16 14 Creatinine 0.9 0.9 Glucose 206 H 202 H Calcium 9.3 9.2 Liver Function 12/18/21 12/19/21 Range/Units 19:00 04:57 Total Bilirubin 0.8 0.9 (0.15-1.2) mg/dL AST 12 11 (0-40) U/L ALT 23 20 (0-41) U/L Alkaline Phosphatase 94 83 (40-130) U/L Albumin 3.1 L 2.7 L (3.5-5.2) g/dL Microbiology 12/18/21 20:02 Blood Culture - Preliminary Blood SPECIMEN COLLECTED 12/18/21 19:59 Blood Culture - Preliminary Blood SPECIMEN COLLECTED Cardiac Studies: No Data to Display
--- NOTE | 2021-12-19 13:16 | ANE.PACU2 ---
Inpatient post-anesthesia follow up: Airway intact: Yes Vital signs: Temperature 98.6 F Pulse Rate 92 Respiratory Rate 15 Blood Pressure 150/82 Pulse Oximetry 92 Oxygen Delivery Me thod Room Air Oxygen Flow Rate Fraction of Inspir ed Oxygen Hydration adequate: Yes Nausea and vomiting: No Pain level: 2 Mental status: Baseline
[2021-12-19] MEDS: acetaminophen 325 mg Tablet 650 MG PO ×2 (14:08→20:09)
[2021-12-19 17:28] LABS: Glucose Point of Care 138 mg/dL (70-110)
--- NOTE | 2021-12-19 19:24 | PC.NURSE ---
Report given to JENNIFER camacho.
[2021-12-19] MEDS: sodium chloride 0.9% 1,000 ML 75 ML IV (19:58)
[2021-12-19 20:35] LABS: Glucose Point of Care 173 mg/dL (70-110)
[2021-12-19] MEDS: enoxaparin 40 mg/0.4 mL Syringe SUBCUT (22:20)
[2021-12-20] VITALS: BP 138/82; PULSE 95; RESP 20; TEMP 37; O2SAT 93
[2021-12-20] MEDS: sodium chloride 0.9% 1,000 ML 75 ML IV (01:17)
[2021-12-20 02:55] LABS: Basophils # 0.1 10^3/uL (0.0-0.1); Basophils % 0.6 %; Eosinophils # 0.1 10^3/uL (0.0-0.8); Eosinophils % 0.8 %; Hematocrit 42.3 % (42.0-52.0); Hemoglobin 14.5 g/dL (11.7-16.6); Lymphocytes # 1.6 10^3/uL (0.8-4.8); Lymphocytes % 12.6 %; Mean Corpuscular HGB Conc 34.3 g/dL (30.0-36.0); Mean Corpuscular Hemoglobin 29.2 pg (28.0-34.0); Mean Corpuscular Volume 85.3 fl (80-94); Mean Platelet Volume 9.6 fL (7.4-10.4); Monocytes # 1.1 10^3/uL (0.2-0.9); Monocytes % 9.1 %; Neutrophils # 9.51 10^3/uL (1.8-7.7); Neutrophils % 76.2 %; Nucleated Red Blood Cells % 0 %; Platelet Count 199 10^3/cmm (130-400); Red Blood Count 4.96 10^6/uL (4.1-5.3); Red Cell Distribution Width 12.2 % (12.1-15.1); White Blood Count 12.5 10^3/uL (4.0-10.0)
[2021-12-20 03:13] LABS: Vancomycin Trough 22.7 ug/mL (10-15)
[2021-12-20 03:16] LABS: Anion Gap 13.7 (5-19); Blood Urea Nitrogen 11 mg/dL (6-20); Calcium 8.9 mg/dL (8.5-10.5); Carbon Dioxide 25 mmol/L (22-29); Chloride 100 mmol/L (98-107); Glomerular Filtration Rate 80.1 mL/min (90-130); Glucose 130 mg/dL (65-115); Osmolality Calculated 281 mOsm/kg (285-295); Potassium 3.7 mmol/L (3.5-5.1); Sodium 135 mmol/L (136-145)
[2021-12-20 04:00] VITALS: BP 95/60; PULSE 74; RESP 18; TEMP 36.3; O2SAT 90
[2021-12-20] MEDS: piperacillin-tazobactam 3.375 GM in sodium chloride 0.9% (plus) 50 ML IV ×3 (05:10→22:42)
--- NOTE | 2021-12-20 06:14 | PM.PN ---
Subjective Subjective: 1 day status post incision and debridement right foot. Tolerating regular diet. Denies any pain to the right foot. Continues to have redness and swelling of the right second toe. His is bedside. Patient denies any subjective nausea, vomiting, fever, chills, shortness of breath or chest pain. Vitals/I&O/Wt Last Vital Signs Temp 97.4 F L 12/20/21 04:00 Pulse 74 12/20/21 04:00 Resp 18 12/20/21 04:00 BP 95/60 12/20/21 04:00 Pulse Ox 90 12/20/21 04:00 O2 Del Method 12/19/21 16:00 12/19/21 12/19/21 12/20/21 14:59 22:59 06:59 Intake Total 1042.5 / 1042.5 1726.25 / 2768.75 448.75 / 3217.50 Output Total 5 / 5 3200 / 3205 1500 / 4705 Balance 1037.5 / 1037.5 -1473.75 / -436.25 -1051.25 / -1487.50 Weight last 48 hrs Weight 181 lb 11.2 oz Weight 285 lb Weight 285 lb Physical Exam Narrative: GENERAL: Patient is alert and oriented ?3 and in no acute distress. The following is a focused bilateral lower extremity exam. VASCULAR: Dorsalis pedis palpable +2 left and right. Posterior tibial arteries +2. Capillary refill time less than 3 seconds to the distal hallux bilaterally. Calf is supple and nontender proximally and distally. Edema to the right forefoot. NEUROLOGICAL: Protective sensation intact 0/10 sites, tested with [place] Eben monofilament to bilateral feet. DERMATOLOGICAL: Erythema and edema to the right second toe. Improved erythema to the right third and fourth toe. No purulence to the incision right plantar forefoot. No soft tissue crepitus. MUSCULOSKELETAL: Hammertoe contractures of toes 2, 3, 4 and 5 of the right foot. Anterior shift of fat pad to the right foot. No pain with posterior calf squeeze. Urinary Catheter Management: 2-way Urethral: Cath Placed During This Visit: yes Reason for Continuing Indwelling Catheter: Acute Urinary Retention or Obstruction Urinary Catheter Date of Insertion: 12/19/21 Urinary Catheter Time of Insertion: 16:40 Data : 12/20/21 02:30 12/20/21 02:30 Micro: Microbiology 12/18/21 20:02 Blood Culture - Preliminary Blood NEGATIVE TO DATE 12/18/21 19:59 Blood Culture - Preliminary Blood NEGATIVE TO DATE A&P Assessment and plan (1) Cellulitis: Qualifiers: Site of cellulitis: extremity Site of cellulitis of extremity: lower extremity Laterality: right Qualified Code(s): L03.115 - Cellulitis of right lower limb (2) Sepsis: Qualifiers: Sepsis type: sepsis due to unspecified organism Sepsis acute organ dysfunction status: unspecified Qualified Code(s): A41.9 - Sepsis, unspecified organism (3) Gangrene of right foot: Plan 46-year-old diabetic male, sepsis secondary to diabetic foot infection with soft tissue of emphysema extending to the second, third and fourth toes right foot. Status post incision and debridement right foot performed 12/19/2021, surgical cultures pending Patient to elevate right foot, heel touch only for transfers. Receiving empiric IV antibiotics, may narrow once cultures yield further information Will require further hospitalization, no significant interval of improvement day 1 postop, May require further surgical debridement versus partial second ray amputation, right foot Will continue to monitor clinical response to debridement and IV antibiotics. 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
[2021-12-20 06:29] LABS: Glucose Point of Care 141 mg/dL (70-110)
--- NOTE | 2021-12-20 07:12 | PC.NURSE ---
Bedside Report given to Marli RODRIGUEZ at this time
[2021-12-20 08:00] VITALS: BP 147/77; PULSE 87; RESP 16; TEMP 36.8; O2SAT 92
[2021-12-20] MEDS: amlodipine 10 mg Tablet PO (08:15)
[2021-12-20] MEDS: pantoprazole DR 40 mg Tablet PO (08:15)
[2021-12-20] MEDS: lisinopril 20 mg Tablet PO (08:15)
--- NOTE | 2021-12-20 10:22 | PM.PN ---
Subjective Subjective: Fever last night noted No fever this morning I will wait until Thursday to get a PICC line Await for sensitivity and culture report decide on antibiotics Patient is well aware that he will stay until Thursday or Thursday to get a PICC line get home health services and get 6 weeks of antibiotics Will touch base with Dr. Jamil Vitals/I&O/Wt Last Vital Signs Temp 98.2 F 12/20/21 08:00 Pulse 87 12/20/21 08:00 Resp 16 12/20/21 08:00 BP 147/77 12/20/21 08:00 Pulse Ox 92 12/20/21 08:00 O2 Del Method 12/20/21 08:00 12/19/21 12/20/21 12/20/21 22:59 06:59 14:59 Intake Total 1726.25 / 2768.75 448.75 / 3217.50 240 / 240 Output Total 3200 / 3205 1500 / 4705 Balance -1473.75 / -436.25 -1051.25 / -1487.50 240 / 240 Weight last 48 hrs Weight 82.418 kg Weight 129.274 kg Weight 129.274 kg Physical Exam Narrative: Patient is in good spirits Awake and alert Currently on room air Foot is covered in dressing Awake and alert No signs of audible stridor or wheezing S1, S2 Nonfocal neuro exam at the bedside Urinary Catheter Management: 2-way Urethral: Cath Placed During This Visit: yes Reason for Continuing Indwelling Catheter: Acute Urinary Retention or Obstruction Urinary Catheter Date of Insertion: 12/19/21 Urinary Catheter Time of Insertion: 16:40 Data : 12/20/21 02:30 12/20/21 02:30 Micro: Microbiology 12/18/21 20:02 Blood Culture - Preliminary Blood NEGATIVE TO DATE 12/18/21 19:59 Blood Culture - Preliminary Blood NEGATIVE TO DATE A&P Assessment and plan (1) Sepsis: Qualifiers: Sepsis type: sepsis due to unspecified organism Sepsis acute organ dysfunction status: unspecified Qualified Code(s): A41.9 - Sepsis, unspecified organism (2) Cellulitis: Qualifiers: Site of cellulitis: extremity Site of cellulitis of extremity: lower extremity Laterality: right Qualified Code(s): L03.115 - Cellulitis of right lower limb (3) Gangrene of right foot: (4) Diabetic foot ulcer: Plan Sepsis related to diabetic foot ulcer Status post incision and debridement of right by Dr. Jamil on 12/19 Will wait for culture and sensitive report Continue broad-spectrum antibiotics Will get MRI to rule out osteomyelitis In case of osteomyelitis he will need PICC line placement and 6 weeks of IV antibiotics and home health services Last febrile event was last night I would not de-escalate antibiotics for now updated We will wait until febrile events resolved to place PICC line Most likely he will stay until Thursday Attestations Medical Necessity Statement*: Continue medical management Time Spent in Patient Care: 40 Coding Level of Care Code Acute Manager Property for [facility] Fwd Diagnoses Sepsis A41.9 Sepsis type: sepsis due to unspecified organism Sepsis acute organ dysfunction status: unspecified Cellulitis L03.115 Site of cellulitis: extremity Site of cellulitis of extremity: lower extremity Laterality: right Gangrene of right foot I96 Diabetic foot ulcer E11.621; L97.509
--- NOTE | 2021-12-20 10:25 | MRR_ITS ---
PROCEDURE INFORMATION: Exam: MR Right Lower Extremity Other Than Joint Without Contrast; Foot Exam date and time: 12/20/2021 3:32 PM Age: 46 years old Clinical indication: Condition or disease; Other: Diabetic foot ulcer rule; Additional info: Diabetic foot ulcer rule out osteomyelitis. TECHNIQUE: Imaging protocol: Magnetic resonance imaging of the Right lower extremity without contrast. Exam focused on the foot. COMPARISON: 1. CT foot RT w con [id number] 12/18/2021 11:11 PM 2. CR (LOW EXM, ) 12/18/2021 7:40 PM FINDINGS: Bones and cartilage: Probable hallux valgus and mild dorsal midfoot spurring consistent with early degenerative disease. Joint spaces: Unremarkable. No joint effusion. LIGAMENTS: Lisfranc ligament: Unremarkable. No evidence of tear. TENDONS: Flexor tendons of foot: Unremarkable. No evidence of tear. Tibialis posterior tendon: Unremarkable as visualized. Peroneal tendons: Unremarkable as visualized. Extensor tendons of foot: Unremarkable. No evidence of tear. Tibialis anterior tendon: Unremarkable as visualized. Tarsal canal (Sinus tarsi): Unremarkable. Tarsal tunnel: Unremarkable. Soft tissues: [id number] diffuse edema edema throughout the dorsal forefoot subcutaneous soft tissue and deep plantar soft tissue. No obvious fluid loculation/drainable soft tissue abscess. Ill-defined area of subcutaneous soft tissue abnormalities demonstrating mildly hypointense signal on both T1 and T2 weighted images at the plantar aspect of 1st, 2nd, 3rd and 4th MTP joint suggesting small pressure lesions. History indicates diabetic foot ulcer which is probably corresponding to the area of distal plantar soft tissue irregularity near the 2nd MTP joint and 2nd and 3rd digits. However the underlying osseous structures do not demonstrate significant loss of T1 weighted bone marrow signal or significant edema to suggest acute osteomyelitis. Plantar fascia: No obvious interspace neuroma or plantar fascia nodular thickening. MR/MR foot RT wo con* [id number] IMPRESSION: 1. No evidence of acute osteomyelitis or drainable soft tissue abscess. 2. Other soft tissue and nonacute osseous findings as above.
[2021-12-20 11:04] LABS: Glucose Point of Care 163 mg/dL (70-110)
[2021-12-20 11:35] VITALS: BP 145/80; PULSE 86; RESP 16; TEMP 36.7; O2SAT 95
[2021-12-20] MEDS: insulin lispro 100 unit/1 mL SUBCUT ×3 (12:34→20:33)
[2021-12-20] MEDS: sodium hypochlorite 0.125% Btl 473 mL 1 APPLIC TOPICAL (14:13)
[2021-12-20 17:04] LABS: Glucose Point of Care 161 mg/dL (70-110)
[2021-12-20 19:51] VITALS: BP 157/91; PULSE 81; RESP 24; TEMP 36.9; O2SAT 98
[2021-12-20 20:19] LABS: Glucose Point of Care 158 mg/dL (70-110)
[2021-12-20] MEDS: insulin glargine 100 units/1 mL 5 UNIT SUBCUT (20:33)
[2021-12-20] MEDS: enoxaparin 40 mg/0.4 mL Syringe SUBCUT (22:42)
[2021-12-21] VITALS: BP 151/80; PULSE 95; RESP 16; TEMP 38.2; O2SAT 94
--- NOTE | 2021-12-21 00:17 | PC.NURSE ---
Nurse notified about patients temperature.
[2021-12-21] MEDS: acetaminophen 325 mg Tablet 650 MG PO ×2 (01:44→20:53)
[2021-12-21 04:00] VITALS: BP 139/80; PULSE 82; RESP 16; TEMP 36.8; O2SAT 96
[2021-12-21 05:01] LABS: Basophils # 0.1 10^3/uL (0.0-0.1); Basophils % 0.6 %; Eosinophils # 0.2 10^3/uL (0.0-0.8); Eosinophils % 1.8 %; Hematocrit 41.3 % (42.0-52.0); Hemoglobin 14.3 g/dL (11.7-16.6); Lymphocytes # 1.6 10^3/uL (0.8-4.8); Mean Corpuscular HGB Conc 34.6 g/dL (30.0-36.0); Mean Corpuscular Hemoglobin 29.4 pg (28.0-34.0); Mean Platelet Volume 9.7 fL (7.4-10.4); Monocytes % 9.2 %; Neutrophils # 7.55 10^3/uL (1.8-7.7); Neutrophils % 72.6 %; Nucleated Red Blood Cells % 0 %; Platelet Count 227 10^3/cmm (130-400); Red Blood Count 4.86 10^6/uL (4.1-5.3); Red Cell Distribution Width 11.9 % (12.1-15.1); White Blood Count 10.4 10^3/uL (4.0-10.0)
[2021-12-21] MEDS: piperacillin-tazobactam 3.375 GM in sodium chloride 0.9% (plus) 50 ML IV ×3 (05:02→23:29)
[2021-12-21 05:34] LABS: Anion Gap 14.7 (5-19); Blood Urea Nitrogen 11 mg/dL (6-20); Calcium 8.7 mg/dL (8.5-10.5); Carbon Dioxide 24 mmol/L (22-29); Chloride 99 mmol/L (98-107); Glomerular Filtration Rate 71.8 mL/min (90-130); Glucose 147 mg/dL (65-115); Osmolality Calculated 280 mOsm/kg (285-295); Potassium 3.7 mmol/L (3.5-5.1); Sodium 134 mmol/L (136-145)
[2021-12-21 06:21] LABS: Glucose Point of Care 166 mg/dL (70-110)
[2021-12-21 07:33] VITALS: BP 134/76; PULSE 85; RESP 16; TEMP 36.9; O2SAT 97
[2021-12-21] MEDS: pantoprazole DR 40 mg Tablet PO (09:00)
[2021-12-21] MEDS: insulin lispro 100 unit/1 mL SUBCUT ×3 (09:01→21:31)
[2021-12-21 09:23] LABS: Glucose Point of Care 129 mg/dL (70-110)
--- NOTE | 2021-12-21 09:35 | PM.PN ---
Subjective Subjective: Patient is going for amputation tomorrow No signs of osteomyelitis Culture sensitivity decide whether he will require p.o. versus IV antibiotics I do think he will need 6 weeks of antibiotics because there is no osteomyelitis I did convey my findings to the patient today Vitals/I&O/Wt Last Vital Signs Temp 98.4 F 12/21/21 07:33 Pulse 85 12/21/21 07:33 Resp 16 12/21/21 07:33 BP 134/76 12/21/21 07:33 Pulse Ox 97 12/21/21 07:33 O2 Del Method 12/20/21 11:35 12/20/21 12/21/21 12/21/21 22:59 06:59 14:59 Intake Total 550 / 1580 50 / 1630 Output Total 1900 / 1900 1350 / 3250 Balance -1350 / -320 -1300 / -1620 Weight last 48 hrs Weight 133.265 kg Weight 82.418 kg Physical Exam Narrative: Patient was sitting at the bedside Awake and alert Right foot covered in dressing Of nonfocal neuro exam Abdomen soft Bilateral breath sounds without active rhonchi or crackles Right foot in dressing I have not remove the dressing today Currently on room air Pleasant and cooperative Urinary Catheter Management: 2-way Urethral: Cath Placed During This Visit: yes Reason for Continuing Indwelling Catheter: Other Urinary Catheter Date of Insertion: 12/19/21 Urinary Catheter Time of Insertion: 16:40 Data : 12/21/21 04:38 12/21/21 04:38 Micro: Microbiology 12/19/21 09:41 Anaerobic Culture - Preliminary Foot - #1 12/19/21 09:41 Gram Stain - Final Toe - #1 Wound Culture - Preliminary Gram Negative Rods A&P Assessment and plan (1) Cellulitis: Qualifiers: Site of cellulitis: extremity Site of cellulitis of extremity: lower extremity Laterality: right Qualified Code(s): L03.115 - Cellulitis of right lower limb (2) Sepsis: Qualifiers: Sepsis type: sepsis due to unspecified organism Sepsis acute organ dysfunction status: unspecified Qualified Code(s): A41.9 - Sepsis, unspecified organism (3) Diabetic foot ulcer: Plan There is plan for amputation tomorrow by Dr. Jamil No signs of osteomyelitis I do think he will need 6 weeks of IV antibiotics Will decide whether he will require 14 days of p.o. antibiotics versus IV He will not return to his work at least 4 to 6 weeks after this amputation, will touch base with Dr. Jamil N.p.o. 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
[2021-12-21 11:08] LABS: Glucose Point of Care 121 mg/dL (70-110)
[2021-12-21] MEDS: HYDROcodone-acetaminophen 5-325 mg Tablet 1 TAB PO (11:32)
[2021-12-21 12:00] VITALS: BP 132/74; PULSE 83; RESP 16; TEMP 36.8; O2SAT 98
[2021-12-21] MEDS: sodium hypochlorite 0.125% Btl 473 mL 1 APPLIC TOPICAL (14:18)
[2021-12-21 15:13] VITALS: BP 132/70; PULSE 89; RESP 16; TEMP 36.7; O2SAT 99
[2021-12-21 17:09] LABS: Glucose Point of Care 179 mg/dL (70-110)
--- NOTE | 2021-12-21 18:03 | PM.PN ---
Subjective Subjective: Patient seen bedside this p.m. Denies any acute events overnight. Denies any pain secondary to neuropathy to the right foot. Still seeing significant redness and swelling to the right second toe. MRI is completed would like to discuss findings. 1 episode of fever. Patient denies any subjective nausea, vomiting, fever, chills, shortness of breath or chest pain. Vitals/I&O/Wt Last Vital Signs Temp 98.1 F 12/21/21 15:13 Pulse 89 12/21/21 15:13 Resp 16 12/21/21 15:13 BP 132/70 12/21/21 15:13 Pulse Ox 99 12/21/21 15:13 O2 Del Method 12/21/21 15:13 12/21/21 12/21/21 12/21/21 06:59 14:59 22:59 Intake Total 50 / 1630 290 / 290 Output Total 1350 / 3250 1800 / 1800 Balance -1300 / -1620 290 / 290 -1800 / -1510 Weight last 48 hrs Weight 293 lb 12.8 oz Weight 181 lb 11.2 oz Physical Exam Narrative: GENERAL: Patient is alert and oriented ?3 and in no acute distress. The following is a focused bilateral lower extremity exam. VASCULAR: Dorsalis pedis palpable +2 left and right. Posterior tibial arteries +2. Capillary refill time less than 3 seconds to the distal hallux bilaterally. Calf is supple and nontender proximally and distally. Edema to the right forefoot. NEUROLOGICAL: Protective sensation intact 0/10 sites, tested with [place] Eben monofilament to bilateral feet. DERMATOLOGICAL: Erythema and edema to the right second toe. Improved erythema to the right third and fourth toe. No purulence to the incision right plantar forefoot. No soft tissue crepitus. MUSCULOSKELETAL: Hammertoe contractures of toes 2, 3, 4 and 5 of the right foot. Anterior shift of fat pad to the right foot. No pain with posterior calf squeeze. Urinary Catheter Management: 2-way Urethral: Cath Placed During This Visit: yes Reason for Continuing Indwelling Catheter: Other Urinary Catheter Date of Insertion: 12/19/21 Urinary Catheter Time of Insertion: 16:40 Data : 12/21/21 04:38 12/21/21 04:38 Micro: Microbiology 12/19/21 09:41 Anaerobic Culture - Preliminary Foot - #1 12/19/21 09:41 Gram Stain - Final Toe - #1 Wound Culture - Preliminary Gram Negative Rods A&P Assessment and plan (1) Cellulitis: Qualifiers: Site of cellulitis: extremity Site of cellulitis of extremity: lower extremity Laterality: right Qualified Code(s): L03.115 - Cellulitis of right lower limb (2) Sepsis: Qualifiers: Sepsis type: sepsis due to unspecified organism Sepsis acute organ dysfunction status: unspecified Qualified Code(s): A41.9 - Sepsis, unspecified organism (3) Gangrene of right foot: Plan 46-year-old diabetic male, sepsis secondary to diabetic foot infection with soft tissue of emphysema extending to the second, third and fourth toes right foot. Status post incision and debridement right foot performed 12/19/2021, surgical cultures pending Patient to elevate right foot, heel touch only for transfers. Receiving empiric IV antibiotics, may narrow once cultures yield further information Reviewed MRI, negative for osteomyelitis Clinical worsening of the right second toe, delayed cap refill, impressive erythema and edema localized to the right second toe, has not responded clinically to empiric antibiotics. N.p.o. 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
[2021-12-21 19:06] LABS: Vancomycin Trough 18.6 ug/mL (10-15)
[2021-12-21 20:00] VITALS: BP 146/81; PULSE 86; RESP 24; TEMP 37.6; O2SAT 93
[2021-12-21] MEDS: insulin glargine 100 units/1 mL 5 UNIT SUBCUT (21:31)
[2021-12-21 21:33] LABS: Glucose Point of Care 145 mg/dL (70-110)
[2021-12-22] VITALS (15 sets, daily range): BP systolic 131–167; BP diastolic 8–98; PULSE 69–82; RESP 15–22; TEMP 36.1–37.6; O2SAT 94–98
[2021-12-22] MEDS: ondansetron 2 mg/ML SDV 2 mL 4 MG IVP (04:54)
[2021-12-22 04:55] LABS: Glucose Point of Care 134 mg/dL (70-110)
[2021-12-22] MEDS: acetaminophen 325 mg Tablet 650 MG PO (05:05)
[2021-12-22 05:19] LABS: Basophils # 0.1 10^3/uL (0.0-0.1); Basophils % 0.9 %; Eosinophils # 0.2 10^3/uL (0.0-0.8); Eosinophils % 2.5 %; Hematocrit 42.3 % (42.0-52.0); Hemoglobin 14.7 g/dL (11.7-16.6); Lymphocytes # 1.8 10^3/uL (0.8-4.8); Lymphocytes % 18.7 %; Mean Corpuscular HGB Conc 34.8 g/dL (30.0-36.0); Mean Corpuscular Hemoglobin 29.4 pg (28.0-34.0); Mean Corpuscular Volume 84.6 fl (80-94); Mean Platelet Volume 9.4 fL (7.4-10.4); Monocytes # 0.9 10^3/uL (0.2-0.9); Monocytes % 9.6 %; Neutrophils # 6.54 10^3/uL (1.8-7.7); Neutrophils % 67.5 %; Nucleated Red Blood Cells % 0 %; Platelet Count 299 10^3/cmm (130-400); Red Cell Distribution Width 12.1 % (12.1-15.1); White Blood Count 9.7 10^3/uL (4.0-10.0)
[2021-12-22] MEDS: piperacillin-tazobactam 3.375 GM in sodium chloride 0.9% (plus) 50 ML IV ×3 (05:32→23:04)
[2021-12-22 05:48] LABS: Anion Gap 17.1 (5-19); Blood Urea Nitrogen 11 mg/dL (6-20); Calcium 8.8 mg/dL (8.5-10.5); Carbon Dioxide 23 mmol/L (22-29); Chloride 102 mmol/L (98-107); Glomerular Filtration Rate 71.8 mL/min (90-130); Glucose 134 mg/dL (65-115); Osmolality Calculated 287 mOsm/kg (285-295); Potassium 4.1 mmol/L (3.5-5.1); Sodium 138 mmol/L (136-145)
[2021-12-22 06:37] LABS: Glucose Point of Care 145 mg/dL (70-110)
--- NOTE | 2021-12-22 10:24 | P.PN_ITS ---
Subjective Subjective: Patient is awaiting for surgery today Looks like we will need 2 weeks of p.o. antibiotics, culture showing gram- negative jono No signs of osteomyelitis Home health services for wound care Vitals/I&O/Wt Last Vital Signs Temp 98.3 F 12/22/21 08:00 Pulse 79 12/22/21 08:00 Resp 15 12/22/21 08:00 BP 153/85 12/22/21 08:00 Pulse Ox 98 12/22/21 08:00 O2 Del Method 12/22/21 08:00 12/21/21 12/22/21 12/22/21 22:59 06:59 14:59 Intake Total 50 / 840 550 / 1390 Output Total 1800 / 1800 2350 / 4150 Balance -1750 / -960 -1800 / -2760 Weight last 48 hrs Weight 133.265 kg Physical Exam Narrative: Awaiting surgery today Awake and alert N.p.o. Abdomen soft No active pain Diaz catheter in place Very pleasant Currently on room air Urinary Catheter Management: 2-way Urethral: Cath Placed During This Visit: yes Reason for Continuing Indwelling Catheter: Acute Urinary Retention or Obstruct ion Urinary Catheter Date of Insertion: 12/19/21 Urinary Catheter Time of Insertion: 16:40 Data : 12/22/21 04:58 12/22/21 04:58 Micro: Microbiology 12/19/21 09:41 Anaerobic Culture - Preliminary Foot - #1 A&P Assessment and plan (1) Cellulitis: Qualifiers: Site of cellulitis: extremity Site of cellulitis of extremity: lower extremity Laterality: right Qualified Code(s): L03.115 - Cellulitis of right lower limb (2) Sepsis: Qualifiers: Sepsis type: sepsis due to unspecified organism Sepsis acute organ dysfunction status: unspecified Qualified Code(s): A41.9 - Sepsis, unspecified organism (3) Diabetic foot ulcer: Plan Sepsis related diabetic foot ulcer resolved Most likely he will need 14 days of p.o. antibiotics No need of PICC line or IV antibiotics for now We will follow-up with Dr. 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
[2021-12-22 11:05] LABS: Glucose Point of Care 134 mg/dL (70-110)
--- NOTE | 2021-12-22 11:12 | W.PM.OPSUD ---
Surgery/Procedure H&P Update DATE OF PROCEDURE: December 22, 2021 DATE H&P PERFORMED: 12/19/21 CHANGES TO PREVIOUS DOCUMENTATION: None PLANNED PROCEDURE: Operation Date: 12/19/21 09:10 Proposed Procedures p Incision And Drainage right foot ulcer(Right) - Beto Jamil DPM Operation Date: 12/22/21 11:05 Proposed Procedures p Ray Resection(Right) - Beto Jamil DPM
[2021-12-22] MEDS: sodium chloride 0.9% 1,000 ML 30 ML IV (11:42)
[2021-12-22] MEDS: vancomycin 1,500 MG/300 ML PIGGYBACK 200 MG IV (11:53)
--- NOTE | 2021-12-22 11:59 | P.ANESUD_ITS ---
Pre-Anesthetic Update Pre-Anesthetic Assessment: Date of Surgery/Procedure: 12/22/21 Proposed Procedure: Operation Date: 12/19/21 09:10 Proposed Procedures p Incision And Drainage right foot ulcer(Right) - Beto Jamil DPM Operation Date: 12/22/21 11:05 Proposed Procedures p Ray Resection(Right) - Beto Jamil DPM Any changes to Pre-Anesthetic Assessment?: No Last Intake: Intake Last Liquid Date 12/19/21 Last Liquid Time 04:00 Last Solid Date 12/18/21 Last Solid Time 20:00 Labs Last 48hrs: Short CBC 12/21/21 12/22/21 Range/Units 04:38 04:58 WBC 10.4 H 9.7 (4.0-10.0) 10^3/ uL Hgb 14.3 14.7 (11.7-16.6) g/dL Hct 41.3 L 42.3 (42.0-52.0) % MCV 85.0 84.6 (80-94) fl Plt Count 227 299 D (130-400) 10^3/c mm Neut % (Auto) 72.6 67.5 % Neut # (Auto) 7.55 6.54 (1.8-7.7) 10^3/u L BMP 12/21/21 12/22/21 04:38 04:58 Sodium 134 L 138 Potassium 3.7 4.1 Chloride 99 102 Carbon Dioxide 24 23 BUN 11 11 Creatinine 1.1 1.1 Glucose 147 H 134 H Calcium 8.7 8.8 Vitals: Temperature 97.7 F 12/22/21 11:40 Temperature Source Temporal Artery S can 12/22/21 11:40 Pulse Rate 77 12/22/21 11:40 Pulse Rhythm 12/18/21 19:03 Respiratory Rate 18 12/22/21 11:40 Respiratory Effort Non-Labored 12/19/21 19:58 Respiratory Depth Normal 12/19/21 19:58 Respiratory Patter n 12/19/21 19:58 Blood Pressure 151/89 12/22/21 11:40 Blood Pressure Beryl n 109 12/22/21 11:40 Blood Pressure Pos ition Semi Fowlers 12/19/21 04:00 Pulse Oximetry 97 12/22/21 11:40 Oxygen Delivery Me thod 12/22/21 11:40 Sepsis Recent Feve r Within 48 Hours Yes 12/18/21 19:03 Sepsis New/Unexpla ined Change in Men kan Status No 12/18/21 19:03 Exam: Pre-Anes Outpt Exam: alert, oriented x 3, clear to auscultation bilaterally and regular rate & rhythm Additional Exam Findings (including area of procedure): Plan repeat I&D under MAC, patient had some urinary retention after last pr ocedure will attempt to avoid narcotics. Cardiac Studies: No Data to Display
--- NOTE | 2021-12-22 13:28 | PM.OP ---
Operative Report Date of procedure: December 22, 2021 Pre-op diagnosis: Diabetic foot infection, right foot with soft tissue emphysema. Post-op diagnosis: Same Post-op findings: Devitalized epidermis, dermis and subcutaneous tissue down to myofascial layer with heavy purulence to the right second toe Procedure done: Partial ray amputation, right second. [id number] Implants: None Specimens removed/disposition: Right second toe sent to pathology Pathology: Right second toe sent to pathology Surgeon: Beto Jamil D.P.M. 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 Discussed partial second ray amputation to the right foot versus transmetatarsal amputation to the right foot and possible application of wound VAC. Patient is agreeable wishes to proceed. N.p.o. since midnight. Initialed patient's right foot. No guarantees written, expressed or implied. I reviewed at length with the patient, the risks, potential complications, benefits, alternatives, expectations, and typical outcomes associated with the surgery. The risks and potential complications were explained in detail, including but not limited to infection, wound dehiscence or soft tissue complications, bleeding and hematoma, chronic edema, neuritis or nerve damage producing numbness or chronic pain, CRPS, failure to relieve pain or worsening pain, thick / painful / unsightly scar, limited motion / stiffness, malposition, delayed union, malunion, or nonunion, fracture, reaction to implants, anesthetic complications, venous thromboembolism, and deformity recurrence. I discussed the notion of no regrets with the patient as it pertains to complications and outcomes. The patient seemed to understand the nature of the proposed care and required convalescence. They asked appropriate questions, answered to their satisfaction. They are aware no guarantees can be made as to a satisfactory outcome and they understand there may be other possible unforeseen complications or outcomes not listed here that will be treated accordingly if they arise. There were no written or implied guarantees given to the patient. They gave informed consent to proceed. Procedure: Under mild sedation the patient was brought to the operating room and remained on the gurney in supine position. A timeout was performed. Anesthesia was then administered by the anesthesia service. Local anesthesia was injected by myself consisting of 20 cc of 0.5% Marcaine plain and a right second ray block fashion. Well-padded pneumatic tourniquet applied to the right high calf. Right lower extremity was scrubbed, prepped and draped utilizing normal aseptic technique. Right foot was elevated and tourniquet was then inflated 250 mmHg. Attention was directed to the right second toe where the entire circumference of the right second toe was taught with edema and noted to have erythema circumferentially with erythema tracking to the dorsum of the right forefoot. Small incision was performed at the base of the right second toe dorsally and heavy purulence was encountered. Decision was determined to perform a partial second ray amputation. Vertical semielliptical incisions full-thickness were performed with a #15 blade encompassing the right second metatarsal phalangeal joint and the right second toe was disarticulated at the metatarsal phalangeal joint with heavy purulence encountered circumferentially with devitalized extensor and flexor tendons appreciated intraoperatively. The toe was sent to pathology for permanent. Tendons were resected under traction to viable margin. Second metatarsal head was resected due to poor density and not being bright and white, the articular surface was soft and subchondral bone was also soft consistent with infection. The incision was flushed with copious amounts of sterile saline solution. Further debridement of devitalized tissue was performed sharply with pickups and a 15 blade followed by further irrigation. Determination was made to continue with wet-to-dry dressings, new wound VAC was applied. Would like to continue empiric IV antibiotics after this surgical resection and gauge remaining soft tissue and forefoot response. He may require transmetatarsal amputation should he fail to demonstrate improvement.
--- NOTE | 2021-12-22 13:42 | ANE.PACU2 ---
Inpatient post-anesthesia follow up: Airway intact: Yes Vital signs: Temperature 97.0 F Pulse Rate 73 Respiratory Rate 18 Blood Pressure 132/88 Pulse Oximetry 97 Oxygen Delivery Me thod Room Air Oxygen Flow Rate 4 Fraction of Inspir ed Oxygen Hydration adequate: Yes Nausea and vomiting: No Pain level: 1 Mental status: Baseline
[2021-12-22] MEDS: amlodipine 10 mg Tablet PO (16:17)
[2021-12-22] MEDS: HYDROcodone-acetaminophen 5-325 mg Tablet 1 TAB PO (16:18)
[2021-12-22] MEDS: lisinopril 20 mg Tablet PO (16:18)
[2021-12-22 17:06] LABS: Glucose Point of Care 178 mg/dL (70-110)
[2021-12-22] MEDS: insulin glargine 100 units/1 mL 5 UNIT SUBCUT (20:53)
[2021-12-22] MEDS: insulin lispro 100 unit/1 mL SUBCUT (20:53)
[2021-12-22 20:55] LABS: Glucose Point of Care 153 mg/dL (70-110)
[2021-12-22] MEDS: enoxaparin 40 mg/0.4 mL Syringe SUBCUT (23:06)
[2021-12-23] MEDS: vancomycin 1,500 MG/300 ML PIGGYBACK 200 MG IV ×3 (00:48→21:38)
[2021-12-23] MEDS: acetaminophen 325 mg Tablet 650 MG PO (02:30)
[2021-12-23 03:18] LABS: Basophils # 0.1 10^3/uL (0.0-0.1); Basophils % 0.8 %; Eosinophils # 0.2 10^3/uL (0.0-0.8); Eosinophils % 1.6 %; Hematocrit 38.9 % (42.0-52.0); Hemoglobin 13.3 g/dL (11.7-16.6); Lymphocytes # 2.4 10^3/uL (0.8-4.8); Lymphocytes % 22.3 %; Mean Corpuscular HGB Conc 34.2 g/dL (30.0-36.0); Mean Corpuscular Hemoglobin 29.4 pg (28.0-34.0); Mean Corpuscular Volume 85.9 fl (80-94); Mean Platelet Volume 9.1 fL (7.4-10.4); Monocytes % 9.3 %; Neutrophils % 64.9 %; Nucleated Red Blood Cells % 0 %; Platelet Count 258 10^3/cmm (130-400); Red Blood Count 4.53 10^6/uL (4.1-5.3); Red Cell Distribution Width 12.1 % (12.1-15.1); White Blood Count 10.6 10^3/uL (4.0-10.0)
[2021-12-23 03:46] LABS: Anion Gap 11.5 (5-19); Blood Urea Nitrogen 12 mg/dL (6-20); Calcium 8.4 mg/dL (8.5-10.5); Carbon Dioxide 22 mmol/L (22-29); Chloride 98 mmol/L (98-107); Glomerular Filtration Rate 90.4 mL/min (90-130); Glucose 130 mg/dL (65-115); Osmolality Calculated 268 mOsm/kg (285-295); Potassium 3.5 mmol/L (3.5-5.1); Sodium 128 mmol/L (136-145)
[2021-12-23 04:00] VITALS: BP 146/79; PULSE 71; RESP 17; TEMP 36.9; O2SAT 95
--- NOTE | 2021-12-23 06:06 | P.PN_ITS ---
Subjective Subjective: Patient seen bedside this morning. Denies any acute events overnight. Denies any pain to the right foot. Some strikethrough bleeding at the surgical dressing right foot. He is status post right second toe amputation and resection of right second metatarsal head date of operation 12/22/2021. Angy tri expresses disappointment that a transmetatarsal potation was not performed, his rationale is that this would allow a quicker start to recovery and likely a shorter recovery. Vitals/I&O/Wt Last Vital Signs Temp 98.4 F 12/23/21 04:00 Pulse 71 12/23/21 04:00 Resp 17 12/23/21 04:00 BP 146/79 12/23/21 04:00 Pulse Ox 95 12/23/21 04:00 O2 Del Method 12/22/21 18:25 O2 Flow Rate 4 12/22/21 13:17 12/22/21 12/22/21 12/23/21 14:59 22:59 06:59 Intake Total 300 / 300 340 / 640 350 / 990 Output Total 5 / 5 850 / 855 1850 / 2705 Balance 295 / 295 -510 / -215 -1500 / -1715 Physical Exam Narrative: GENERAL: Patient is alert and oriented ?3 and in no acute distress. The following is a focused bilateral lower extremity exam. VASCULAR: Dorsalis pedis palpable +2 left and right. Posterior tibial arteries +2. Capillary refill time less than 3 seconds to the distal hallux bilaterally. Calf is supple and nontender proximally and distally. Edema to the right forefoot. NEUROLOGICAL: Protective sensation intact 0/10 sites, tested with [place] tein monofilament to bilateral feet. DERMATOLOGICAL: Active leading with dressing change to the right second toe amputation site. Erythema to the right forefoot. MUSCULOSKELETAL: Status post partial second ray resection right foot. No pain with calf squeeze. Urinary Catheter Management: 2-way Urethral: Cath Placed During This Visit: yes Reason for Continuing Indwelling Catheter: Other Urinary Catheter Date of Insertion: 12/19/21 Urinary Catheter Time of Insertion: 16:40 Data : 12/23/21 02:57 12/23/21 02:57 Micro: Microbiology 12/19/21 09:41 Gram Stain - Final Toe - #1 Wound Culture - Final Escherichia coli 12/19/21 09:41 Anaerobic Culture - Preliminary Foot - #1 A&P Assessment and plan (1) Cellulitis: Qualifiers: Laterality: right Site of cellulitis: extremity Site of cellulitis of extremity: lower extremity Qualified Code(s): L03.115 - Cellulitis of right lower limb (2) Sepsis: Qualifiers: Sepsis acute organ dysfunction status: unspecified Sepsis type: sepsis due to unspecified organism Qualified Code(s): A41.9 - Sepsis, unspecified organism (3) Gangrene of right foot: Plan 46-year-old diabetic male, sepsis secondary to diabetic foot infection with soft tissue of emphysema extending to the second, third and fourth toes right foot. Status post incision and debridement right foot performed 12/19/2021 cultures yielded E. coli. Status post partial right ray resection 12/22/2021 Patient to elevate right foot, heel touch only for transfers. Receiving empiric IV antibiotics, may narrow once cultures yield further information Reviewed MRI, negative for osteomyelitis. No plans for PICC line. Patient will require further hospitalization due to persistent cellulitis. Second toe was unsalvageable to the extent of soft tissue infection, had gas gangrene, there was a small amount of soft tissue of eczema in the third, fourth toes of the right foot these are showing some improvement, would like to continue salvage efforts on these toes over the next day and gauge response to continued antibiotics. May require further level of amputation. Ultimately patient is requesting amputation, would like to gauge soft tissue response to antibiotics prior to proceeding with that. Should there not be a improvement in clinical appearance of remaining toes would consider transmetatarsal amputation Thursday at 7 AM. 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
[2021-12-23] MEDS: piperacillin-tazobactam 3.375 GM in sodium chloride 0.9% (plus) 50 ML IV ×3 (06:07→23:21)
[2021-12-23 06:35] LABS: Glucose Point of Care 129 mg/dL (70-110)
[2021-12-23 08:00] VITALS: BP 153/88; PULSE 80; RESP 16; TEMP 37.1; O2SAT 97
[2021-12-23] MEDS: pantoprazole DR 40 mg Tablet PO (08:50)
[2021-12-23] MEDS: metroNIDAZOLE 500 MG Tablet PO ×2 (08:50→17:28)
[2021-12-23] MEDS: lisinopril 20 mg Tablet PO (08:50)
[2021-12-23] MEDS: amlodipine 10 mg Tablet PO (08:50)
--- NOTE | 2021-12-23 10:32 | P.PN_ITS ---
Subjective Subjective: Plan for amputation as per Dr. Jamil Continue IV antibiotics E. coli gram-negative jono from 12/19 positive Vitals/I&O/Wt Last Vital Signs Temp 98.7 F 12/23/21 08:00 Pulse 80 12/23/21 08:00 Resp 16 12/23/21 08:00 BP 153/88 12/23/21 08:00 Pulse Ox 97 12/23/21 08:00 O2 Del Method 12/22/21 18:25 O2 Flow Rate 4 12/22/21 13:17 12/22/21 12/23/21 12/23/21 22:59 06:59 14:59 Intake Total 340 / 640 350 / 990 Output Total 850 / 855 1850 / 2705 Balance -510 / -215 -1500 / -1715 Physical Exam Narrative: Patient is at the bedside eating breakfast Awake and alert S1, S2 Currently on room air Pleasant and cooperative at the bedside Nonfocal neuro exam Urinary Catheter Management: 2-way Urethral: Cath Placed During This Visit: yes Reason for Continuing Indwelling Catheter: Other Urinary Catheter Date of Insertion: 12/19/21 Urinary Catheter Time of Insertion: 16:40 Data : 12/23/21 02:57 12/23/21 02:57 Micro: Microbiology 12/19/21 09:41 Gram Stain - Final Toe - #1 Wound Culture - Final Escherichia coli 12/19/21 09:41 Anaerobic Culture - Preliminary Foot - #1 A&P Assessment and plan (1) Cellulitis: Qualifiers: Site of cellulitis: extremity Site of cellulitis of extremity: lower extremity Laterality: right Qualified Code(s): L03.115 - Cellulitis of right lower limb (2) Sepsis: Qualifiers: Sepsis type: sepsis due to unspecified organism Sepsis acute organ dysfunction status: unspecified Qualified Code(s): A41.9 - Sepsis, unspecified organism (3) Diabetic foot ulcer: Plan Plan for amputation as per Dr. Jamil transmetatarsal Thursday Dr. Jamil did notify me that patient will need wound VAC, aggressive wound care, home health services and possibly would just need p.o. antibiotics instead of IV at the time of discharge Febrile episodes improved Sepsis resolved Gram-negative jono E. coli noted from culture taken on 12/19 Continue IV antibiotics for now until the day of surgery I will make him n.p.o. 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
[2021-12-23 11:06] LABS: Glucose Point of Care 231 mg/dL (70-110)
[2021-12-23 12:00] VITALS: BP 145/82; PULSE 76; RESP 16; TEMP 37.1; O2SAT 95
[2021-12-23] MEDS: insulin lispro 100 unit/1 mL SUBCUT ×3 (12:17→21:35)
[2021-12-23 16:00] VITALS: BP 139/77; PULSE 80; RESP 16; TEMP 37.1; O2SAT 95
[2021-12-23 17:15] LABS: Glucose Point of Care 221 mg/dL (70-110)
[2021-12-23] MEDS: HYDROcodone-acetaminophen 5-325 mg Tablet 1 TAB PO (18:16)
[2021-12-23 20:00] VITALS: BP 156/79; PULSE 72; RESP 17; TEMP 36.9; O2SAT 95
[2021-12-23 21:05] LABS: Glucose Point of Care 177 mg/dL (70-110)
[2021-12-23] MEDS: insulin glargine 100 units/1 mL 5 UNIT SUBCUT (21:35)
[2021-12-24] VITALS (7 sets, daily range): BP systolic 130–179; BP diastolic 60–102; PULSE 69–74; RESP 16–18; TEMP 36.7–36.9; O2SAT 93–98
[2021-12-24] MEDS: piperacillin-tazobactam 3.375 GM in sodium chloride 0.9% (plus) 50 ML IV ×3 (06:15→23:19)
[2021-12-24] MEDS: HYDROcodone-acetaminophen 5-325 mg Tablet 1 TAB PO (06:30)
--- NOTE | 2021-12-24 06:43 | PM.PN ---
Subjective Subjective: Patient seen bedside this morning. Denies any acute events overnight. Right foot dressing has some strikethrough bleeding. Patient denies any subjective nausea, vomiting, fever, chills, shortness of breath or chest pain. Vitals/I&O/Wt Last Vital Signs Temp 98.2 F 12/24/21 04:00 Pulse 72 12/24/21 04:00 Resp 16 12/24/21 04:00 BP 130/60 12/24/21 04:00 Pulse Ox 93 12/24/21 04:00 O2 Del Method 12/22/21 18:25 O2 Flow Rate 4 12/22/21 13:17 12/23/21 12/23/21 12/24/21 14:59 22:59 06:59 Intake Total 850 / 850 290 / 1140 350 / 1490 Output Total 3950 / 3950 950 / 4900 Balance 850 / 850 -3660 / -2810 -600 / -3410 Physical Exam Narrative: GENERAL: Patient is alert and oriented ?3 and in no acute distress. The following is a focused bilateral lower extremity exam. VASCULAR: Dorsalis pedis palpable +2 left and right. Posterior tibial arteries +2. Capillary refill time less than 3 seconds to the distal hallux bilaterally. Calf is supple and nontender proximally and distally. Edema to the right forefoot. NEUROLOGICAL: Protective sensation intact 0/10 sites, tested with [place] monofilament to bilateral feet. DERMATOLOGICAL: Active bleeding with dressing change to the right second toe amputation site. Erythema to the right forefoot improving. MUSCULOSKELETAL: Status post partial second ray resection right foot. No pain with calf squeeze. Urinary Catheter Management: 2-way Urethral: Cath Placed During This Visit: yes Reason for Continuing Indwelling Catheter: Acute Urinary Retention or Obstruction Urinary Catheter Date of Insertion: 12/19/21 Urinary Catheter Time of Insertion: 16:40 Data : 12/23/21 02:57 12/23/21 02:57 Micro: Microbiology 12/18/21 20:02 Blood Culture - Final Blood NO GROWTH AFTER 5 DAYS 12/18/21 19:59 Blood Culture - Final Blood NO GROWTH AFTER 5 DAYS 12/19/21 09:41 Anaerobic Culture - Preliminary Foot - #1 A&P Assessment and plan (1) Cellulitis: Qualifiers: Site of cellulitis: extremity Site of cellulitis of extremity: lower extremity Laterality: right Qualified Code(s): L03.115 - Cellulitis of right lower limb (2) Sepsis: Qualifiers: Sepsis type: sepsis due to unspecified organism Sepsis acute organ dysfunction status: unspecified Qualified Code(s): A41.9 - Sepsis, unspecified organism (3) Gangrene of right foot: Plan 46-year-old diabetic male, sepsis secondary to diabetic foot infection with soft tissue of emphysema extending to the second, third and fourth toes right foot. Status post incision and debridement right foot performed 12/19/2021 cultures yielded E. coli. Status post partial right ray resection 12/22/2021 Patient to elevate right foot, heel touch only for transfers. Receiving empiric IV antibiotics, may narrow once cultures yield further information Reviewed MRI, negative for osteomyelitis. No plans for PICC line. N.p.o. at midnight Primary delayed closure versus wound VAC right foot schedule tomorrow at 7 AM 12/25/2021 Planning on 2 weeks of oral antibiotics on discharge Podiatry will follow. Can potentially be discharged home after surgery tomorrow pending intraoperative findings. 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
[2021-12-24 08:06] LABS: Glucose Point of Care 133 mg/dL (70-110)
[2021-12-24] MEDS: amlodipine 10 mg Tablet PO (08:19)
[2021-12-24] MEDS: lisinopril 20 mg Tablet PO (08:19)
[2021-12-24] MEDS: pantoprazole DR 40 mg Tablet PO (08:19)
[2021-12-24] MEDS: metroNIDAZOLE 500 MG Tablet PO ×2 (08:19→17:49)
--- NOTE | 2021-12-24 09:37 | P.PN_ITS ---
Subjective Subjective: Patient is going for amputation tomorrow Overnight events Cultures have been reported and explained to the patient Afebrile Continue IV antibiotics until the day of surgery She will go home on p.o. antibiotics and home health services Vitals/I&O/Wt Last Vital Signs Temp 98.4 F 12/24/21 07:55 Pulse 73 12/24/21 07:55 Resp 16 12/24/21 07:55 BP 158/81 12/24/21 07:55 Pulse Ox 98 12/24/21 07:55 O2 Del Method 12/24/21 07:55 O2 Flow Rate 4 12/22/21 13:17 12/23/21 12/24/21 12/24/21 22:59 06:59 14:59 Intake Total 290 / 1140 350 / 1490 Output Total 3950 / 3950 950 / 4900 Balance -3660 / -2810 -600 / -3410 Physical Exam Narrative: Patient is awake and alert Comfortable laying supine Currently on room air Pleasant and cooperative S1, S2 Abdomen soft No audible stridor or wheezing Urinary Catheter Management: 2-way Urethral: Cath Placed During This Visit: yes Reason for Continuing Indwelling Catheter: Acute Urinary Retention or Obstruction Urinary Catheter Date of Insertion: 12/19/21 Urinary Catheter Time of Insertion: 16:40 Data : 12/23/21 02:57 12/23/21 02:57 Micro: Microbiology 12/18/21 20:02 Blood Culture - Final Blood NO GROWTH AFTER 5 DAYS 12/18/21 19:59 Blood Culture - Final Blood NO GROWTH AFTER 5 DAYS 12/19/21 09:41 Anaerobic Culture - Preliminary Foot - #1 A&P Assessment and plan (1) Cellulitis: Qualifiers: Site of cellulitis: extremity Site of cellulitis of extremity: lower extremity Laterality: right Qualified Code(s): L03.115 - Cellulitis of right lower limb (2) Sepsis: Qualifiers: Sepsis type: sepsis due to unspecified organism Sepsis acute organ dysfunction status: unspecified Qualified Code(s): A41.9 - Sepsis, unspecified organism (3) Diabetic foot ulcer: Plan Sepsis: Resolved Diabetic ulcer with cellulitis and gangrene Gangrene of right foot Patient going for amputation tomorrow He will most likely go home on p.o. antibiotics and home health services N.p.o. after midnight Hold DVT prophylaxis Afebrile Continue IV antibiotics until the day of surgery transition to p.o. 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
[2021-12-24] MEDS: vancomycin 1,500 MG/300 ML PIGGYBACK 200 MG IV ×2 (10:26→21:37)
--- NOTE | 2021-12-24 12:04 | PC.NURSE ---
Pt blood pressure currently 179/102, patient received all am medications, patient has multiple family members at bedside currently, notified Dr. Ca will recheck blood pressure once family leaves bedside.
[2021-12-24 12:10] LABS: Glucose Point of Care 215 mg/dL (70-110)
[2021-12-24] MEDS: insulin lispro 100 unit/1 mL SUBCUT ×3 (12:15→21:35)
[2021-12-24] MEDS: acetaminophen 325 mg Tablet 650 MG PO (15:02)
[2021-12-24 17:06] LABS: Glucose Point of Care 210 mg/dL (70-110)
[2021-12-24 21:34] LABS: Glucose Point of Care 205 mg/dL (70-110)
[2021-12-24] MEDS: insulin glargine 100 units/1 mL 5 UNIT SUBCUT (21:35)
[2021-12-24 22:06] LABS: Vancomycin Trough 13.1 ug/mL (10-15)
[2021-12-25] VITALS (13 sets, daily range): BP systolic 83–165; BP diastolic 55–101; PULSE 62–76; RESP 16–18; TEMP 36.1–36.8; O2SAT 95–99
[2021-12-25 03:40] LABS: Basophils # 0.1 10^3/uL (0.0-0.1); Eosinophils # 0.3 10^3/uL (0.0-0.8); Eosinophils % 2.9 %; Hematocrit 41.5 % (42.0-52.0); Hemoglobin 14.3 g/dL (11.7-16.6); Lymphocytes # 2.5 10^3/uL (0.8-4.8); Lymphocytes % 23.2 %; Mean Corpuscular HGB Conc 34.5 g/dL (30.0-36.0); Mean Corpuscular Hemoglobin 29.4 pg (28.0-34.0); Mean Corpuscular Volume 85.2 fl (80-94); Mean Platelet Volume 8.8 fL (7.4-10.4); Monocytes # 0.8 10^3/uL (0.2-0.9); Monocytes % 7.4 %; Neutrophils # 6.75 10^3/uL (1.8-7.7); Neutrophils % 63.3 %; Nucleated Red Blood Cells % 0 %; Platelet Count 310 10^3/cmm (130-400); Red Blood Count 4.87 10^6/uL (4.1-5.3); Red Cell Distribution Width 12.1 % (12.1-15.1); White Blood Count 10.7 10^3/uL (4.0-10.0)
[2021-12-25 04:21] LABS: Blood Urea Nitrogen 11 mg/dL (6-20); Calcium 8.5 mg/dL (8.5-10.5); Carbon Dioxide 24 mmol/L (22-29); Chloride 98 mmol/L (98-107); Creatinine Clr Calc Pharmacy 127.2111; Glomerular Filtration Rate 80.1 mL/min (90-130); Glucose 128 mg/dL (65-115); Osmolality Calculated 277 mOsm/kg (285-295); Sodium 133 mmol/L (136-145)
[2021-12-25 04:34] LABS: Slide Review Slide Review Perform
[2021-12-25] MEDS: piperacillin-tazobactam 3.375 GM in sodium chloride 0.9% (plus) 50 ML IV (05:55)
--- NOTE | 2021-12-25 06:25 | W.PM.OPSUD ---
Surgery/Procedure H&P Update DATE OF PROCEDURE: December 25, 2021 DATE H&P PERFORMED: 12/19/21 CHANGES TO PREVIOUS DOCUMENTATION: none PLANNED PROCEDURE: Operation Date: 12/19/21 09:10 Proposed Procedures p Incision And Drainage right foot ulcer(Right) - Beto Jamil DPM Operation Date: 12/22/21 11:05 Proposed Procedures p Ray Resection(Right) - Beto Jamil DPM Operation Date: 12/25/21 07:00 Proposed Procedures p Delayed Wound Closure Right foot(Right) - Beto Jamil DPM
[2021-12-25 06:29] LABS: Glucose Point of Care 141 mg/dL (70-110)
--- NOTE | 2021-12-25 06:37 | P.OP_ITS ---
Operative Report Date of procedure: December 25, 2021 Pre-op diagnosis: Diabetic foot infection, right foot with soft tissue emphysema. Post-op diagnosis: Same Procedure done: Primary delayed closure right foot. CPT code 02028 Implants: 3-0 Monocryl, 3-0 Prolene Specimens removed/disposition: None Pathology: Beto Jamil D.P.M. Surgeon: None Bowling Ball Patcher: Brooke Estimated blood loss: 5 IV fluids: 0 Urine output: 0 Complications: None Findings: Post debridement improved soft tissue quality. Brief History: Status post incision and right second toe amputation secondary to gangrene. Improved soft tissue quality, plans for primary delayed closure today. I reviewed at length with the patient, the risks, potential complications, benefits, alternatives, expectations, and typical outcomes associated with the surgery. The risks and potential complications were explained in detail, including but not limited to infection, wound dehiscence or soft tissue complications, bleeding and hematoma, chronic edema, neuritis or nerve damage producing numbness or chronic pain, CRPS, failure to relieve pain or worsening pain, thick / painful / unsightly scar, limited motion / stiffness, malposition, delayed union, malunion, or nonunion, fracture, reaction to implants, anesthetic complications, venous thromboembolism, and deformity recurrence. I discussed the notion of no regrets with the patient as it pertains to complications and outcomes. The patient seemed to understand the nature of the proposed care and required convalescence. They asked appropriate questions, answered to their satisfaction. They are aware no guarantees can be made as to a satisfactory outcome and they understand there may be other possible unforeseen complications or outcomes not listed here that will be treated accordingly if they arise. There were no written or implied guarantees given to the patient. They gave informed consent to proceed. Procedure: Under mild sedation the patient was brought to the operating room and remained on the gurney in supine position. A timeout was performed. Anesthesia was then administered by the anesthesia service. Local anesthesia injected by myself consisting of 0.5% Marcaine plain total of 30 cc right ankle block fashion. Well-padded pneumatic tourniquet applied to the right high calf. Right lower extremity was then scrubbed, prepped and draped utilizing normal aseptic technique. Right foot was elevated and tourniquet inflated to 250 mmHg. Attention was directed to the right distal forefoot where open wound exposed bone was appreciated. There is improved granular tissue. Remaining devitalized tissue down to and including subcutaneous tissue and fat layer was sharply debrided with pickups and a 15 blade. Intraoperatively there was 3-second capillary refill to the right great, third, fourth and fifth toes. The incision was irrigated with copious amounts of sterile skin solution and closed in a layered fashion. Periosteum, deep fascia and muscle reapproximated utilizing 3- 0 Monocryl. Skin reapproximated utilizing 3-0 Vicryl. There was a small skin deficit at the amputation site of the right second toe that required packing with quarter inch packing. Incision site was then dressed with Adaptic, sterile 4 x 4's, Kerlix and Hema wrap. Tourniquet was deflated and a prompt hyperemic response was noted to the distal digits remaining of the right foot. Patient tolerated the procedure and anesthesia well and was transferred to the PACU with vital signs stable and vascular status intact. Following a period of postoperative monitoring he will be transferred back to the floor. Patient okay for discharge from podiatry/surgical standpoint. Will require home health Will require twice daily dressing change and packing with quarter inch packing He is to elevate his foot Heel touch only for transfers with OrthoWedge heel shoe Can discharge on oral antibiotics Levaquin 750 daily, would like to add metronidazole for additional gram-negative and anaerobic coverage.
[2021-12-25] MEDS: sodium chloride 0.9% 1,000 ML 30 ML IV (06:50)
--- NOTE | 2021-12-25 07:27 | ANES.PAUD2 ---
Pre-Anesthetic Update Pre-Anesthetic Assessment: Date of Surgery/Procedure: 12/25/21 Proposed Procedure: Operation Date: 12/19/21 09:10 Proposed Procedures p Incision And Drainage right foot ulcer(Right) - Beto Jamil DPM Operation Date: 12/22/21 11:05 Proposed Procedures p Ray Resection(Right) - Beto Jamil DPM Operation Date: 12/25/21 07:00 Proposed Procedures p Delayed Wound Closure Right foot(Right) - Beto Jamil DPM Any changes to Pre-Anesthetic Assessment?: No Last Intake: Intake Last Liquid Date 12/24/21 Last Liquid Time 23:45 Last Solid Date 12/18/21 Last Solid Time 20:00 Labs Last 48hrs: Short CBC 12/25/21 Range/Units 03:17 WBC 10.7 H (4.0-10.0) 10^3/ uL Hgb 14.3 (11.7-16.6) g/dL Hct 41.5 L (42.0-52.0) % MCV 85.2 (80-94) fl Plt Count 310 (130-400) 10^3/c mm Neut % (Auto) 63.3 % Neut # (Auto) 6.75 (1.8-7.7) 10^3/u L BMP 12/25/21 03:17 Sodium 133 L Potassium 4.0 Chloride 98 Carbon Dioxide 24 BUN 11 Creatinine 1.0 Glucose 128 H Calcium 8.5 Vitals: Temperature 97.5 F L 12/25/21 06:36 Temperature Source Temporal Artery S can 12/25/21 06:36 Pulse Rate 68 12/25/21 06:36 Pulse Rhythm 12/18/21 19:03 Respiratory Rate 18 12/25/21 06:36 Respiratory Effort Non-Labored 12/19/21 19:58 Respiratory Depth Normal 12/19/21 19:58 Respiratory Patter n 12/19/21 19:58 Blood Pressure 159/87 12/25/21 06:36 Blood Pressure Beryl n 111 12/25/21 06:36 Blood Pressure Pos ition Supine 12/25/21 03:25 Pulse Oximetry 97 12/25/21 06:36 Oxygen Delivery Me thod 12/25/21 06:36 Oxygen Flow Rate 4 12/22/21 13:17 Sepsis Recent Feve r Within 48 Hours Yes 12/18/21 19:03 Sepsis New/Unexpla ined Change in Men kan Status No 12/18/21 19:03 Exam: Pre-Anes Outpt Exam: alert, oriented x 3, clear to auscultation bilaterally and regular rate & rhythm Cardiac Studies: No Data to Display
--- NOTE | 2021-12-25 08:03 | XR_ITS ---
WS: [id number] Exam: XR foot RT 2V [id number] Date/Time of Exam: 12/25/2021 8:04 AM Reason For Exam: post op There is been amputation of the second digit at the level of the neck of the second metatarsal. No ot her postoperative changes noted. No acute fractures are identified. Soft tissue swelling of the foref oot. XR/XR foot RT 2V [id number] IMPRESSION: 1. Amputation of the second digit as indicated above.
--- NOTE | 2021-12-25 09:36 | PM.DCS ---
Discharge Providers Date of Admission: 12/18/21 20:05 Date of Discharge: December 25, 2021 Attending Provider at Admission: Paige Hannah MD Attending Provider at Discharge: Hannah Ca MD Primary Care Provider: Farzaneh Hernandez MD Diagnoses at Discharge Discharge Diagnosis (1) Cellulitis: Status: Acute Qualifiers: Laterality: right Site of cellulitis: extremity Site of cellulitis of extremity: lower extremity Qualified Code(s): L03.115 - Cellulitis of right lower limb Permanent problem details: E. coli (2) Sepsis: Status: Acute Qualifiers: Sepsis acute organ dysfunction status: unspecified Sepsis type: sepsis due to unspecified organism Qualified Code(s): A41.9 - Sepsis, unspecified organism (3) Gangrene of right foot: Status: Acute Reason for Visit Reason for Visit: right foot ulcer and fever Hospital Course Hospital Course Mr. Chavez was admitted for management of diabetic foot ulcer, he was diagnosed with cellulitis, sepsis, gangrene of right foot, went for incision and drainage, because of the lack of improvement in soft tissue color edema and redness Dr. Jamil decided to go for second toe amputation, primary delayed closure was done on 12/25, his culture from 12/19 showed E. coli, pansensitive, his fever subsided, sepsis resolved, Dr. Jamil is recommending 2 weeks of p.o. antibiotics Levaquin and Flagyl. He will follow-up with Dr. Jamil outpatient, he will get home test. His hemoglobin A1c is 8.3 does not qualify for insulin, home health services if you can get it has been arranged. Physical Exam Narrative: Right foot covered with dressing Awake and alert Currently on RA Abdomen soft Pleasant cooperative EOMI, PERRLA Nonfocal exam Urinary Catheter Management: 2-way Urethral: Cath Placed During This Visit: yes Reason for Continuing Indwelling Catheter: Acute Urinary Retention or Obstruction Urinary Catheter Date of Insertion: 12/19/21 Urinary Catheter Time of Insertion: 16:40 Discharge Data Studies Completed and Pending Completed Studies During Hospitalization Category Date Time Status CT foot RT w con [id number] Routine Cat Scan 12/18/21 22:33 Completed XR foot RT 2V [id number] Routine Exams 12/25/21 08:03 Completed XR foot RT min 3V* [id number] Stat Exams 12/18/21 18:32 Completed MR foot RT wo con* [id number] Routine MRI 12/20/21 10:25 Completed Pending at discharge Category Date Time Status Anaerobic Culture Routine Lab 12/19/21 09:41 Results Pathology: Surgical [PTH] Routine Pth 12/22/21 13:24 Received Radiology Impressions Foot CT 12/18/21 22:33 IMPRESSION: Soft tissue ulceration over the plantar aspect of the 2nd metacarpophalangeal joint with subcutaneous emphysema seen extending about the 2nd, 3rd and 4th phalanges with nonlocalized fluid consistent with a soft tissue infection, negative for focal fluid collection to indicate an abscess or acute appearing bony abnormality. Foot MRI 12/20/21 10:25 IMPRESSION: 1. No evidence of acute osteomyelitis or drainable soft tissue abscess. 2. Other soft tissue and nonacute osseous findings as above. Foot X-Ray 12/25/21 08:03 IMPRESSION: 1. Amputation of the second digit as indicated above. Laboratory Results WBC 10.7 10^3/uL (4.0-10.0) H 12/25/21 03:17 RBC 4.87 10^6/uL (4.1-5.3) 12/25/21 03:17 Hgb 14.3 g/dL (11.7-16.6) 12/25/21 03:17 Hct 41.5 % (42.0-52.0) L 12/25/21 03:17 MCV 85.2 fl (80-94) 12/25/21 03:17 MCH 29.4 pg (28.0-34.0) 12/25/21 03:17 MCHC 34.5 g/dL (30.0-36.0) 12/25/21 03:17 RDW 12.1 % (12.1-15.1) 12/25/21 03:17 Plt Count 310 10^3/cmm (130-400) 12/25/21 03:17 MPV 8.8 fL (7.4-10.4) 12/25/21 03:17 Neut % (Auto) 63.3 % 12/25/21 03:17 Lymph % (Auto) 23.2 % 12/25/21 03:17 [place] % (Auto) 7.4 % 12/25/21 03:17 Eos % (Auto) 2.9 % 12/25/21 03:17 Baso % (Auto) 1.0 % 12/25/21 03:17 Neut # (Auto) 6.75 10^3/uL (1.8-7.7) 12/25/21 03:17 Lymph # (Auto) 2.5 10^3/uL (0.8-4.8) 12/25/21 03:17 [place] # (Auto) 0.8 10^3/uL (0.2-0.9) 12/25/21 03:17 Eos # (Auto) 0.3 10^3/uL (0.0-0.8) 12/25/21 03:17 Baso # (Auto) 0.1 10^3/uL (0.0-0.1) 12/25/21 03:17 Nucleated RBC % (auto) 0 % 12/25/21 03:17 Nucleated RBCs # 0.0 /100WBC 12/25/21 03:17 Sodium 133 mmol/L (136-145) L 12/25/21 03:17 Potassium 4.0 mmol/L (3.5-5.1) 12/25/21 03:17 Chloride 98 mmol/L (98-107) 12/25/21 03:17 Carbon Dioxide 24 mmol/L (22-29) 12/25/21 03:17 Anion Gap 15.0 (5-19) 12/25/21 03:17 BUN 11 mg/dL (6-20) 12/25/21 03:17 Creatinine 1.0 mg/dL (0.7-1.2) 12/25/21 03:17 GFR Calculation 80.1 mL/min (90-130) L 12/25/21 03:17 Glucose 128 mg/dL (65-115) H 12/25/21 03:17 POC Glucose 141 mg/dL (70-110) H 12/25/21 06:07 Estimat Average Glucose 192 12/18/21 19:59 Hemoglobin A1c 8.3 % (4.0-6.0) H 12/18/21 19:59 Calculated Osmolality 277 mOsm/kg (285-295) L 12/25/21 03:17 Lactic Acid 1.7 mmol/L (0.5-2.2) 12/18/21 19:59 Calcium 8.5 mg/dL (8.5-10.5) 12/25/21 03:17 Total Bilirubin 0.9 mg/dL (0.15-1.2) 12/19/21 04:57 AST 11 U/L (0-40) 12/19/21 04:57 ALT 20 U/L (0-41) 12/19/21 04:57 Alkaline Phosphatase 83 U/L (40-130) 12/19/21 04:57 Total Protein 6.7 g/dL (6.6-8.7) 12/19/21 04:57 Albumin 2.7 g/dL (3.5-5.2) L 12/19/21 04:57 Globulin 4.0 g/dL (1.3-4.6) 12/19/21 04:57 Vancomycin Trough 13.1 ug/mL (10-15) 12/24/21 21:19 Vitals Last Vital Signs Temp 98.0 F 12/25/21 08:12 Pulse 71 12/25/21 08:12 Resp 18 12/25/21 08:12 BP 117/87 12/25/21 08:12 Pulse Ox 98 12/25/21 08:12 O2 Del Method 12/25/21 08:12 O2 Flow Rate 6 12/25/21 07:54 Discharge Plan Discharge Patient Disposition: Home Condition: Stable Prescriptions: New metronidazole 500 mg Tablet 500 mg PO TID Qty: 42 0RF levofloxacin 750 mg tablet 750 mg PO DAILY 14 Days Qty: 14 0RF Probiotic Blend 2 billion cell-50 mg capsule 1 cap PO DAILY Qty: 14 0RF Rx Instructions: give with meal/snack oxycodone 5 mg tablet 5 mg PO DAILY PRN (Reason: pain) Qty: 10 0RF Senna-S 8.6-50 mg tablet 1 tab-cap PO DAILY Qty: 30 0RF Continued metformin 500 mg tablet extended release 24 hr 2,000 mg PO DAILY@05 Januvia 100 mg tablet 100 mg PO DAILY@05 amlodipine 10 mg tablet 10 mg PO DAILY@05 glimepiride 2 mg tablet 4 mg PO DAILY@05 acetaminophen 500 mg Tablet 1,000 mg PO Q4H PRN (Reason: Pain) ibuprofen 200 mg Tablet 800 mg PO Q4H PRN (Reason: Pain) Ozempic 1 mg/dose (4 mg/3 mL) pen injector 1 mg SUBCUT Q7D Rx Instructions: on lisinopril 20 mg tablet 20 mg PO DAILY@05 Qty: 30 0RF Discontinued doxycycline hyclate 100 mg tablet 100 mg PO BID Rx Instructions: for 14 days (rx filled 12/16/21) Discharge Orders: Discharge Order (Routine); Ordered 12/25/21 Ordered By: Hannah Ca Other Ambulatory Orders: DME: Wheelchair (Order) Location: None Selected Ordered By: Beto Jamil Miscellaneous Procedure (Order) Location: None Selected Ordered By: Beto Jamil Miscellaneous Procedure (Order) Location: None Selected Ordered By: Beto Jamil Referrals: Beto Jamil DPM [Physician] - 12/30/21 7:45 am Discharge Diet: Regular Discharge Activity: Wheelchair as instructed Patient Instructions: Metronidazole (By mouth), Oxycodone, Rapid Release (By mouth), Levofloxacin (By mouth), Probiotic (By mouth), Senna (By mouth), Transmetatarsal Amputation (PRE), Acute Wound Care (GEN), Opioid Safety Activity Restrictions/Additional Instructions: Will require will require home health for dressing supplies and once weekly visits. Family will be educated on twice daily dressing changes Will require wheelchair with leg extension to the right for elevation Dressing orders for right foot: -Twice daily dressing change: cleanse wound with sterile water, consisting of quarter inch packing, sterile 4 x 4, 4 inch Kerlix and 4 inch Hema wrap Follow-up with Dr. Jamil in podiatry clinic December 30 7:45 AM. Discharge Attestations Time Spent in Discharge Care*: less than 30 min Quality Metrics Clinical Quality Measures [ No reported AMI, CVA or VTE this stay] Coding Level of Care Code Acute Chg FW DC note Diagnoses Cellulitis L03.115 Laterality: right Site of cellulitis: extremity Site of cellulitis of extremity: lower extremity Sepsis A41.9 Sepsis acute organ dysfunction status: unspecified Sepsis type: sepsis due to unspecified organism Gangrene of right foot I96
[2021-12-25] MEDS: amlodipine 10 mg Tablet PO (09:49)
[2021-12-25] MEDS: metroNIDAZOLE 500 MG Tablet PO (09:49)
[2021-12-25] MEDS: pantoprazole DR 40 mg Tablet PO (09:50)
[2021-12-25] MEDS: lisinopril 20 mg Tablet PO (09:50)
--- NOTE | 2021-12-25 09:51 | PC.NURSE ---
nurse was notified about high BP
[2021-12-25 11:20] LABS: Glucose Point of Care 192 mg/dL (70-110)
--- NOTE | 2021-12-25 17:39 | ANE.PACU2 ---
Inpatient post-anesthesia follow up: Airway intact: Yes Vital signs: Temperature 98.0 F Pulse Rate 74 Respiratory Rate 18 Blood Pressure 159/89 Pulse Oximetry 99 Oxygen Delivery Me thod Room Air Oxygen Flow Rate 6 Fraction of Inspir ed Oxygen Hydration adequate: Yes Nausea and vomiting: No Pain level: 1 Mental status: Baseline
== END 2021-12-25 14:49 | disposition home or self-care (01) | DRG 853 ==
LOC: ER 19:41 → MEDSURG 20:33
PROVIDERS: Emergency Medicine; Podiatrist Foot & Ankle Surgery; Admitting Provider Student in an Organized Health Care Education/Training Program; Emergency Provider Registered Nurse; PCP Family Medicine; Visit Provider Internal Medicine
PROC: 0JBQ0ZZ Excision of Right Foot Subcutaneous Tissue and Fascia, Open Approach (ICD-10-PCS; principal; 2021-12-19 09:00)
PROC: 0Y6R0Z0 Detachment at Right 2nd Toe, Complete, Open Approach (ICD-10-PCS; CPT 28810; principal; 2021-12-22 10:45)
PROC: 0JQQ0ZZ Repair Right Foot Subcutaneous Tissue and Fascia, Open Approach (ICD-10-PCS; CPT 13160; principal; 2021-12-25 07:00)
DX: A41.9 Sepsis, unspecified organism (principal); A48.0 Gas gangrene; E11.52 Type 2 diabetes mellitus with diabetic peripheral angiopathy with gangrene; L03.115 Cellulitis of right lower limb; T79.7XXA Traumatic subcutaneous emphysema, initial encounter; E11.621 Type 2 diabetes mellitus with foot ulcer; L97.512 Non-pressure chronic ulcer of other part of right foot with fat layer exposed; E11.40 Type 2 diabetes mellitus with diabetic neuropathy, unspecified; Z87.891 Personal history of nicotine dependence; X58.XXXA Exposure to other specified factors, initial encounter; B96.20 Unspecified Escherichia coli [E. coli] as the cause of diseases classified elsewhere; Z79.84 Long term (current) use of oral hypoglycemic drugs
CPT/HCPCS: 36415; 36416; 51702; 73620; 73630; 73701; 73718; 80048; 80053; 80202; 82962; 83036; 83605; 85025; 87040; 87070; 87075; 87077; 87186; 87205; 88305; 88311; 96365; 96367; 96372; 99285; J1650; J1815; J2405; J2543; J2704; J3010; J3370; J3490; J7030; J7040; J7050; L3260; Q9967

== ENCOUNTER → 2022-01-06 11:22 | Outpatient (BNVA) | payer BC, SELFPAY | PROVIDERS: PCP Family Medicine; Visit Provider Podiatrist Foot & Ankle Surgery | DX: L03.115 Cellulitis of right lower limb (principal); E11.621 Type 2 diabetes mellitus with foot ulcer; L97.513 Non-pressure chronic ulcer of other part of right foot with necrosis of muscle; I96 Gangrene, not elsewhere classified; Z48.89 Encounter for other specified surgical aftercare; Z79.84 Long term (current) use of oral hypoglycemic drugs; Z98.890 Other specified postprocedural states | CPT/HCPCS: 73630 ==

== ENCOUNTER → 2022-01-20 13:16 | Outpatient (BNVA) | payer BC, SELFPAY | PROVIDERS: PCP Family Medicine; Visit Provider Podiatrist Foot & Ankle Surgery | DX: I96 Gangrene, not elsewhere classified (principal); L97.513 Non-pressure chronic ulcer of other part of right foot with necrosis of muscle; Z48.89 Encounter for other specified surgical aftercare; Z79.84 Long term (current) use of oral hypoglycemic drugs; E11.621 Type 2 diabetes mellitus with foot ulcer | CPT/HCPCS: 73630 ==